=== PATIENT | female | born 1940 | race Caucasian/White ===

== ENCOUNTER 2018-07-23 04:13 | Emergency (ER) | payer MEDICARE, MEDICAID ==
[~2018-07-23] VITALS: Ht 162.6 cm; Wt 40.9 kg
[~2018-07-23 04:13] MED LIST: ALBU6.7H INH; FURO-149 PO; HYDR-569 PO
[2018-07-23] MEDS ORDERED: ketorolac trometh inj. 60 MG/2 ML VIAL IM ONE (04:55)
[2018-07-23] MEDS ORDERED: HYDROcodone/acetaminophen 5mg/325mg tablet PO ONE (05:05)
[2018-07-23] MEDS ORDERED: ondansetron 4mg rapidly disintigrating tab PO ONE (05:05)
[2018-07-23 05:10] VITALS: BP 141/81
== END 2018-07-23 07:36 | disposition home or self-care (01) ==
LOC: ER 04:13
DX: G89.29 Other chronic pain (principal); M79.604 Pain in right leg; M79.605 Pain in left leg; J44.9 Chronic obstructive pulmonary disease, unspecified; K21.9 Gastro-esophageal reflux disease without esophagitis; Z72.89 Other problems related to lifestyle; Z88.1 Allergy status to other antibiotic agents; Z88.8 Allergy status to other drugs, medicaments and biological substances; Z88.6 Allergy status to analgesic agent
CPT/HCPCS: 93005; 96372; 99283; J1885

== ENCOUNTER 2018-08-18 10:15 | Inpatient (IN) | payer MEDICARE, MEDICAID ==
[~2018-08-18] VITALS: Ht 160 cm; Wt 40.9 kg
[~2018-08-18 10:15] MED LIST changes: +HYDR-4383 PO; -HYDR-569 PO
[2018-08-18 11:50] LABS: CLARITY,URINE CLEAR (Clear); COLOR,URINE YELLOW (Yellow); GLUCOSE, URINE NEGATIVE (Neg); KETONES,URINE NEGATIVE (Neg); LEUKOCYTE ESTERASE ,URINE NEGATIVE (Neg); NITRITES, URINE NEGATIVE (Neg); OCCULT BLOOD,URINE NEGATIVE (Neg); PH,URINE 7.5 (4.8-8.0); PROTEIN,URINE NEGATIVE (Neg)
[2018-08-18 11:51] LABS: UA COLLECTION TYPE CLN CATCH MIDSTREAM
[2018-08-18] MEDS ORDERED: HYDROcodone/acetaminophen 10/325mg tab PO ONE (11:55)
[2018-08-18 12:00] LABS: PARTIAL THROMBOPLASTIN TIME 31 SECONDS (22-32)
[2018-08-18 12:01] LABS: BASOPHILS # (AUTO) 0.1 X10'3 (0-0.2); EOSINOPHILS # (AUTO) 0.1 X10'3 (0-0.9); EOSINOPHILS % (AUTO) 1.3 % (0-6); HEMOGLOBIN 13.4 g/dl (12.0-16.0); LYMPHOCYTES # (AUTO) 2.7 X10'3 (1.1-4.8); LYMPHOCYTES % (AUTO) 25.8 % (21-51); MEAN CORPUSCULAR HEMOGLOBIN 29.1 PG (27.0-31.0); MEAN CORPUSCULAR HGB CONC 32.7 % (33.0-36.5); MEAN CORPUSCULAR VOLUME 88.9 FL (78-98); MEAN PLATELET VOLUME 8.4 FL (7.4-10.4); MONOCYTES # (AUTO) 0.8 X10'3 (0-0.9); MONOCYTES % (AUTO) 7.6 % (2-12); NEUTROPHILS # (AUTO) 6.8 X10'3 (1.8-7.7); NEUTROPHILS % (AUTO) 64.3 % (42-75); PLATELET COUNT 410 X10'3 (140-440); RED BLOOD COUNT 4.61 X10'6 (4.20-5.60); RED CELL DISTRIBUTION WIDTH 14.9 % (11.5-14.5); WHITE BLOOD COUNT 10.6 X10'3 (4.5-11.0)
[2018-08-18 12:07] LABS: ALANINE AMINOTRANSFERASE 20 U/L (12-78); ALBUMIN 2.6 G/DL (3.4-5.0); ALBUMIN/GLOBULIN RATIO 0.6 (1.1-1.5); ALKALINE PHOSPHATASE 121 IU/L (46-116); ANION GAP 8 (8-16); ASPARTATE AMINO TRANSFERASE 25 U/L (10-37); BILIRUBIN,TOTAL 0.5 MG/DL (0.1-1.0); BLOOD UREA NITROGEN 13 MG/DL (7-18); BUN/CREATININE RATIO 21.3 (6.6-38.0); CALCIUM 8.7 MG/DL (8.5-10.1); CHLORIDE 103 MMOL/L (99-107); CREATININE 0.61 MG/DL (0.40-0.90); GLUCOSE 87 MG/DL (70-104); MAGNESIUM 2.1 MG/DL (1.5-2.4); POTASSIUM 3.9 MMOL/L (3.5-5.1); SODIUM 141 MMOL/L (135-145); TOTAL CARBON DIOXIDE 30.4 MMOL/L (24-32); TOTAL PROTEIN 6.7 G/DL (6.4-8.2); eGFR > 90 ML/MIN
[2018-08-18] MEDS ORDERED: magnesium Cl slow-release 64mg tablet PO PRN (14:10)
[2018-08-18] MEDS ORDERED: potassium Cl 20 mEq SR tablet PO PRN ×2 (14:10)
[2018-08-18] MEDS ORDERED: acetaminophen 325mg tablet PO PRN ×2 (14:10)
[2018-08-18] MEDS ORDERED: magnesium 4gm in 100ml NS 100 ML IV PRN (14:10)
[2018-08-18] MEDS ORDERED: magnesium 1gm/100ml D5W IVPB 100 ML IV PRN (14:10)
[2018-08-18] MEDS ORDERED: magnesium hydroxide 30ml (MOM) UD suspension PO PRN (14:10)
[2018-08-18] MEDS ORDERED: mag hydrox/Alum hydrox/simeth 30ml oral suspension PO PRN (14:10)
[2018-08-18] MEDS ORDERED: morphine 2 MG/ML inj. syringe IV PRN (14:10)
[2018-08-18] MEDS ORDERED: potassium Cl 40MEQ/NS 500ml 500 ML IV PRN ×2 (14:10)
[2018-08-18] MEDS ORDERED: HYDROcodone/acetaminophen 5mg/325mg tablet PO PRN (14:10)
[2018-08-18] MEDS ORDERED: iohexol 350MG/ML 100ml bottle IV ONE (14:27)
[2018-08-18] MEDS: normal saline 1000ml 1,000 ML IV SCH (15:34)
[2018-08-18] MEDS: morphine 2 MG/ML inj. syringe IV PRN ×2 (15:34→19:48)
[2018-08-18] MEDS: HYDROcodone/acetaminophen 10/325mg tab PO PRN (16:52)
[2018-08-18 19:00] VITALS: BP 132/50
[2018-08-18] MEDS: heparin, porcine 5000 units/ml vial SQ SCH (19:52)
[2018-08-19] MEDS: morphine 2 MG/ML inj. syringe IV PRN ×4 (00:03→19:44)
[2018-08-19 00:30] VITALS: BP 111/50
[2018-08-19 05:12] LABS: ALBUMIN 1.9 G/DL (3.4-5.0); ANION GAP 8 (8-16); BLOOD UREA NITROGEN 15 MG/DL (7-18); CALCIUM 7.8 MG/DL (8.5-10.1); CHLORIDE 105 MMOL/L (99-107); GLUCOSE 83 MG/DL (70-104); MAGNESIUM 1.9 MG/DL (1.5-2.4); POTASSIUM 3.7 MMOL/L (3.5-5.1); SODIUM 141 MMOL/L (135-145); TOTAL CARBON DIOXIDE 28.5 MMOL/L (24-32); eGFR > 90 ML/MIN
[2018-08-19 05:25] LABS: BASOPHILS % (AUTO) 0.5 % (0-1); EOSINOPHILS # (AUTO) 0.4 X10'3 (0-0.9); EOSINOPHILS % (AUTO) 3.4 % (0-6); HEMOGLOBIN 11.6 g/dl (12.0-16.0); LYMPHOCYTES # (AUTO) 4.1 X10'3 (1.1-4.8); LYMPHOCYTES % (AUTO) 39.4 % (21-51); MEAN CORPUSCULAR HEMOGLOBIN 29.1 PG (27.0-31.0); MEAN CORPUSCULAR HGB CONC 33.1 % (33.0-36.5); MEAN CORPUSCULAR VOLUME 87.9 FL (78-98); MEAN PLATELET VOLUME 7.9 FL (7.4-10.4); MONOCYTES # (AUTO) 0.9 X10'3 (0-0.9); MONOCYTES % (AUTO) 8.7 % (2-12); PLATELET COUNT 409 X10'3 (140-440); RED BLOOD COUNT 3.98 X10'6 (4.20-5.60); RED CELL DISTRIBUTION WIDTH 14.5 % (11.5-14.5); WHITE BLOOD COUNT 10.5 X10'3 (4.5-11.0)
[2018-08-19 07:00] VITALS: BP 119/50
[2018-08-19] MEDS: K and/or MAG REPLACEMENT MC SCH (08:00)
[2018-08-19] MEDS: heparin, porcine 5000 units/ml vial SQ SCH ×2 (08:59→19:44)
[2018-08-19] MEDS: pantoprazole 40mg Tablet.DR PO SCH (08:59)
[2018-08-19 11:00] VITALS: BP 111/49
[2018-08-19] MEDS: normal saline 1000ml 1,000 ML IV SCH (13:12)
[2018-08-19] MEDS: vancomycin/NS 1 GM ADD-VANTAGE 250 ML IV SCH (13:25)
[2018-08-19 19:00] VITALS: BP 116/53
[2018-08-19] MEDS: HYDROcodone/acetaminophen 10/325mg tab PO PRN (22:01)
[2018-08-20] VITALS: BP 116/50
[2018-08-20] MEDS: morphine 2 MG/ML inj. syringe IV PRN ×3 (03:57→22:58)
[2018-08-20 05:09] LABS: BASOPHILS % (AUTO) 0.5 % (0-1); EOSINOPHILS # (AUTO) 0.2 X10'3 (0-0.9); EOSINOPHILS % (AUTO) 2.4 % (0-6); HEMATOCRIT 32.7 % (35.0-45.0); HEMOGLOBIN 10.8 g/dl (12.0-16.0); LYMPHOCYTES # (AUTO) 3.3 X10'3 (1.1-4.8); LYMPHOCYTES % (AUTO) 33.2 % (21-51); MEAN CORPUSCULAR HEMOGLOBIN 29.2 PG (27.0-31.0); MEAN CORPUSCULAR HGB CONC 32.9 % (33.0-36.5); MEAN CORPUSCULAR VOLUME 88.8 FL (78-98); MEAN PLATELET VOLUME 8.4 FL (7.4-10.4); MONOCYTES # (AUTO) 0.9 X10'3 (0-0.9); MONOCYTES % (AUTO) 9.1 % (2-12); NEUTROPHILS # (AUTO) 5.5 X10'3 (1.8-7.7); NEUTROPHILS % (AUTO) 54.8 % (42-75); PLATELET COUNT 381 X10'3 (140-440); RED BLOOD COUNT 3.68 X10'6 (4.20-5.60); RED CELL DISTRIBUTION WIDTH 14.7 % (11.5-14.5)
[2018-08-20 05:34] LABS: ALBUMIN 1.6 G/DL (3.4-5.0); ANION GAP 9 (8-16); BLOOD UREA NITROGEN 14 MG/DL (7-18); CALCIUM 7.9 MG/DL (8.5-10.1); CHLORIDE 108 MMOL/L (99-107); CREATININE 0.56 MG/DL (0.40-0.90); GLUCOSE 83 MG/DL (70-104); MAGNESIUM 1.8 MG/DL (1.5-2.4); SODIUM 143 MMOL/L (135-145); TOTAL CARBON DIOXIDE 25.9 MMOL/L (24-32); eGFR > 90 ML/MIN
[2018-08-20 05:35] LABS: POTASSIUM 2.9 MMOL/L (3.5-5.1)
[2018-08-20] MEDS: normal saline 1000ml 1,000 ML IV SCH ×3 (06:09→22:58)
[2018-08-20 07:04] VITALS: BP 116/49
[2018-08-20] MEDS: K and/or MAG REPLACEMENT MC SCH (08:00)
[2018-08-20] MEDS: pantoprazole 40mg Tablet.DR PO SCH (08:29)
[2018-08-20] MEDS: heparin, porcine 5000 units/ml vial SQ SCH ×2 (08:29→19:14)
[2018-08-20] MEDS: HYDROcodone/acetaminophen 10/325mg tab PO PRN ×2 (08:30→19:14)
[2018-08-20 11:20] VITALS: BP 109/52
[2018-08-20] MEDS: vancomycin/NS 1 GM ADD-VANTAGE 250 ML IV SCH (12:30)
[2018-08-20] MEDS: ondansetron/PF 4mg/2ml inj IV PRN (14:41)
[2018-08-20] MEDS: CefTRIAXone/D5W-Rocephin 1gm 50 ML IV SCH (14:49)
[2018-08-20 18:00] VITALS: BP 109/53
[2018-08-20] MEDS: lactobacillus rhamnosus 10,000 MMU CELLS/CAPSULE PO SCH (19:14)
[2018-08-21 00:10] VITALS: BP 119/53
[2018-08-21 05:15] LABS: BASOPHILS # (AUTO) 0.1 X10'3 (0-0.2); BASOPHILS % (AUTO) 0.8 % (0-1); EOSINOPHILS # (AUTO) 0.3 X10'3 (0-0.9); HEMATOCRIT 31.9 % (35.0-45.0); HEMOGLOBIN 10.5 g/dl (12.0-16.0); LYMPHOCYTES % (AUTO) 34.2 % (21-51); MEAN CORPUSCULAR HEMOGLOBIN 28.8 PG (27.0-31.0); MEAN CORPUSCULAR HGB CONC 32.8 % (33.0-36.5); MEAN CORPUSCULAR VOLUME 87.9 FL (78-98); MEAN PLATELET VOLUME 8.2 FL (7.4-10.4); MONOCYTES # (AUTO) 0.7 X10'3 (0-0.9); MONOCYTES % (AUTO) 8.3 % (2-12); NEUTROPHILS # (AUTO) 4.7 X10'3 (1.8-7.7); NEUTROPHILS % (AUTO) 53.7 % (42-75); PLATELET COUNT 369 X10'3 (140-440); RED BLOOD COUNT 3.63 X10'6 (4.20-5.60); RED CELL DISTRIBUTION WIDTH 14.8 % (11.5-14.5); WHITE BLOOD COUNT 8.8 X10'3 (4.5-11.0)
[2018-08-21 05:24] LABS: ALBUMIN 1.5 G/DL (3.4-5.0); ANION GAP 9 (8-16); BLOOD UREA NITROGEN 12 MG/DL (7-18); BUN/CREATININE RATIO 24.5 (6.6-38.0); CALCIUM 7.7 MG/DL (8.5-10.1); CHLORIDE 108 MMOL/L (99-107); CREATININE 0.49 MG/DL (0.40-0.90); GLUCOSE 87 MG/DL (70-104); MAGNESIUM 1.9 MG/DL (1.5-2.4); POTASSIUM 3.4 MMOL/L (3.5-5.1); SODIUM 143 MMOL/L (135-145); TOTAL CARBON DIOXIDE 25.6 MMOL/L (24-32); eGFR > 90 ML/MIN
[2018-08-21] MEDS: morphine 2 MG/ML inj. syringe IV PRN ×3 (05:36→19:14)
[2018-08-21 07:06] VITALS: BP 118/55
[2018-08-21] MEDS: CefTRIAXone/D5W-Rocephin 1gm 50 ML IV SCH (07:25)
[2018-08-21] MEDS: pantoprazole 40mg Tablet.DR PO SCH (07:25)
[2018-08-21] MEDS: lactobacillus rhamnosus 10,000 MMU CELLS/CAPSULE PO SCH ×2 (07:26→19:13)
[2018-08-21] MEDS: heparin, porcine 5000 units/ml vial SQ SCH ×3 (07:28→19:13)
[2018-08-21] MEDS: K and/or MAG REPLACEMENT MC SCH (07:57)
[2018-08-21] MEDS ORDERED: LIDOcaine 1% 30ml vial 5 ML in potassium Cl 40MEQ/NS 500ml 500 ML IV ONE (08:05)
[2018-08-21] MEDS ORDERED: NO HOME MEDS (09:48)
[2018-08-21] MEDS: HYDROcodone/acetaminophen 10/325mg tab PO PRN ×3 (11:11→23:03)
[2018-08-21] MEDS: vancomycin/NS 1 GM ADD-VANTAGE 250 ML IV SCH (11:40)
[2018-08-21 11:58] VITALS: BP 112/57
[2018-08-21] MEDS: gentamicin 0.1% topical ointment 15gm TP SCH (17:00)
[2018-08-21 18:00] VITALS: BP 109/50
[2018-08-21] MEDS: temazepam 15mg capsule PO PRN (23:09)
[2018-08-22] VITALS: BP 135/69
[2018-08-22] MEDS: HYDROcodone/acetaminophen 10/325mg tab PO PRN ×4 (04:59→21:45)
[2018-08-22 05:04] LABS: ANION GAP 10 (8-16); BLOOD UREA NITROGEN 11 MG/DL (7-18); CHLORIDE 109 MMOL/L (99-107); CREATININE 0.55 MG/DL (0.40-0.90); GLUCOSE 85 MG/DL (70-104); POTASSIUM 3.5 MMOL/L (3.5-5.1); SODIUM 145 MMOL/L (135-145); TOTAL CARBON DIOXIDE 26.2 MMOL/L (24-32)
[2018-08-22 05:05] LABS: ALBUMIN 1.6 G/DL (3.4-5.0); CALCIUM 8.3 MG/DL (8.5-10.1); MAGNESIUM 1.8 MG/DL (1.5-2.4); eGFR > 90 ML/MIN
[2018-08-22 05:15] LABS: BASOPHILS # (AUTO) 0.1 X10'3 (0-0.2); BASOPHILS % (AUTO) 0.9 % (0-1); EOSINOPHILS # (AUTO) 0.4 X10'3 (0-0.9); EOSINOPHILS % (AUTO) 5.4 % (0-6); HEMATOCRIT 34.9 % (35.0-45.0); HEMOGLOBIN 11.3 g/dl (12.0-16.0); LYMPHOCYTES # (AUTO) 3.6 X10'3 (1.1-4.8); LYMPHOCYTES % (AUTO) 43.5 % (21-51); MEAN CORPUSCULAR HEMOGLOBIN 28.7 PG (27.0-31.0); MEAN CORPUSCULAR HGB CONC 32.4 % (33.0-36.5); MEAN CORPUSCULAR VOLUME 88.7 FL (78-98); MEAN PLATELET VOLUME 8.4 FL (7.4-10.4); MONOCYTES # (AUTO) 0.6 X10'3 (0-0.9); MONOCYTES % (AUTO) 7.8 % (2-12); NEUTROPHILS # (AUTO) 3.5 X10'3 (1.8-7.7); NEUTROPHILS % (AUTO) 42.4 % (42-75); PLATELET COUNT 387 X10'3 (140-440); RED BLOOD COUNT 3.94 X10'6 (4.20-5.60); RED CELL DISTRIBUTION WIDTH 14.6 % (11.5-14.5); WHITE BLOOD COUNT 8.2 X10'3 (4.5-11.0)
[2018-08-22 07:00] VITALS: BP 122/64
[2018-08-22] MEDS: K and/or MAG REPLACEMENT MC SCH (07:03)
[2018-08-22] MEDS: CefTRIAXone/D5W-Rocephin 1gm 50 ML IV SCH (07:03)
[2018-08-22] MEDS: heparin, porcine 5000 units/ml vial SQ SCH ×2 (07:03→19:59)
[2018-08-22] MEDS: lactobacillus rhamnosus 10,000 MMU CELLS/CAPSULE PO SCH ×2 (07:03→19:59)
[2018-08-22] MEDS: pantoprazole 40mg Tablet.DR PO SCH (07:03)
[2018-08-22] MEDS: morphine 2 MG/ML inj. syringe IV PRN ×4 (07:15→23:49)
[2018-08-22] MEDS: gentamicin 0.1% topical ointment 15gm TP SCH (08:00)
[2018-08-22 11:00] VITALS: BP 124/63
[2018-08-22] MEDS ORDERED: VANCOMYCIN LEVEL IV NR (11:30)
[2018-08-22] MEDS: vancomycin/NS 1 GM ADD-VANTAGE 250 ML IV SCH (12:49)
[2018-08-22] MEDS: Dakins solution (1/4 strength) 473ml solution TP SCH ×2 (17:11→20:00)
[2018-08-22 18:00] VITALS: BP 127/64
[2018-08-22] MEDS: lactose-reduced food (Ensure Enlive) - 237ml bottle PO SCH (18:00)
[2018-08-22] MEDS: normal saline 1000ml 1,000 ML IV SCH ×2 (18:09→21:46)
[2018-08-22] MEDS: temazepam 15mg capsule PO PRN (19:59)
[2018-08-23] VITALS: BP 127/57
[2018-08-23] MEDS: HYDROcodone/acetaminophen 10/325mg tab PO PRN ×4 (03:48→20:52)
[2018-08-23 04:41] LABS: BASOPHILS # (AUTO) 0.1 X10'3 (0-0.2); EOSINOPHILS # (AUTO) 0.5 X10'3 (0-0.9); EOSINOPHILS % (AUTO) 5.9 % (0-6); HEMATOCRIT 36.5 % (35.0-45.0); HEMOGLOBIN 11.8 g/dl (12.0-16.0); LYMPHOCYTES # (AUTO) 3.4 X10'3 (1.1-4.8); LYMPHOCYTES % (AUTO) 38.3 % (21-51); MEAN CORPUSCULAR HEMOGLOBIN 28.9 PG (27.0-31.0); MEAN CORPUSCULAR HGB CONC 32.4 % (33.0-36.5); MONOCYTES # (AUTO) 0.7 X10'3 (0-0.9); MONOCYTES % (AUTO) 7.9 % (2-12); NEUTROPHILS # (AUTO) 4.2 X10'3 (1.8-7.7); NEUTROPHILS % (AUTO) 46.9 % (42-75); PLATELET COUNT 424 X10'3 (140-440); WHITE BLOOD COUNT 8.9 X10'3 (4.5-11.0)
[2018-08-23 05:00] LABS: ALBUMIN 1.7 G/DL (3.4-5.0); ANION GAP 9 (8-16); BLOOD UREA NITROGEN 10 MG/DL (7-18); BUN/CREATININE RATIO 18.5 (6.6-38.0); CHLORIDE 107 MMOL/L (99-107); CREATININE 0.54 MG/DL (0.40-0.90); GLUCOSE 91 MG/DL (70-104); MAGNESIUM 1.6 MG/DL (1.5-2.4); SODIUM 144 MMOL/L (135-145); eGFR > 90 ML/MIN
[2018-08-23] MEDS ORDERED: magnesium 4gm in 100ml NS 100 ML IV PRN (05:30)
[2018-08-23] MEDS ORDERED: potassium Cl 20 mEq SR tablet PO PRN ×2 (05:30)
[2018-08-23] MEDS ORDERED: magnesium Cl slow-release 64mg tablet PO PRN (05:30)
[2018-08-23] MEDS ORDERED: potassium Cl 40MEQ/NS 500ml 500 ML IV PRN (05:30)
[2018-08-23 07:10] VITALS: BP_SYST 59
[2018-08-23] MEDS: lactose-reduced food (Ensure Enlive) - 237ml bottle PO SCH ×3 (08:00→17:34)
[2018-08-23] MEDS: K and/or MAG REPLACEMENT MC SCH (08:00)
[2018-08-23] MEDS: Dakins solution (1/4 strength) 473ml solution TP SCH ×2 (08:00→19:53)
[2018-08-23] MEDS: heparin, porcine 5000 units/ml vial SQ SCH ×2 (08:41→19:24)
[2018-08-23] MEDS: lactobacillus rhamnosus 10,000 MMU CELLS/CAPSULE PO SCH ×2 (08:41→19:27)
[2018-08-23] MEDS: pantoprazole 40mg Tablet.DR PO SCH (08:42)
[2018-08-23] MEDS: morphine 2 MG/ML inj. syringe IV PRN ×3 (08:42→18:52)
[2018-08-23] MEDS: potassium Cl 40MEQ/NS 500ml 500 ML IV PRN ×2 (08:43→15:04)
[2018-08-23 12:37] VITALS: BP 132/62
[2018-08-23] MEDS: CefTRIAXone/D5W-Rocephin 1gm 50 ML IV SCH (12:48)
[2018-08-23] MEDS: vancomycin/NS 1 GM ADD-VANTAGE 250 ML IV SCH (13:31)
[2018-08-23] MEDS ORDERED: oxyCODONE IR 5mg (immed. release) tablet PO ONE (15:00)
[2018-08-23 18:00] VITALS: BP 123/53
[2018-08-23] MEDS: docusate sod 100mg capsule PO SCH (19:28)
[2018-08-24] VITALS (19 sets, daily range): BP systolic 104–166; BP diastolic 48–73
[2018-08-24] MEDS: normal saline 1000ml 1,000 ML IV SCH (01:00)
[2018-08-24] MEDS: HYDROcodone/acetaminophen 10/325mg tab PO PRN ×2 (01:00→17:31)
[2018-08-24] MEDS: heparin, porcine 5000 units/ml vial SQ SCH ×2 (04:00→19:40)
[2018-08-24] MEDS: morphine 2 MG/ML inj. syringe IV PRN ×2 (04:05→14:06)
[2018-08-24 05:47] LABS: PARTIAL THROMBOPLASTIN TIME 31 SECONDS (22-32); PROTHROMBIN TIME 10.6 SECONDS (9.0-12.0)
[2018-08-24 06:06] LABS: BASOPHILS # (AUTO) 0.1 X10'3 (0-0.2); EOSINOPHILS # (AUTO) 0.5 X10'3 (0-0.9)
[2018-08-24 06:07] LABS: BASOPHILS % (AUTO) 1.3 % (0-1); EOSINOPHILS % (AUTO) 5.7 % (0-6); LYMPHOCYTES # (AUTO) 3.3 X10'3 (1.1-4.8); LYMPHOCYTES % (AUTO) 41.5 % (21-51); MEAN CORPUSCULAR HGB CONC 33.9 % (33.0-36.5); MEAN CORPUSCULAR VOLUME 88.3 FL (78-98); MEAN PLATELET VOLUME 8.5 FL (7.4-10.4); MONOCYTES # (AUTO) 0.7 X10'3 (0-0.9); MONOCYTES % (AUTO) 8.6 % (2-12); NEUTROPHILS # (AUTO) 3.4 X10'3 (1.8-7.7); NEUTROPHILS % (AUTO) 42.9 % (42-75); PLATELET COUNT 409 X10'3 (140-440); RED CELL DISTRIBUTION WIDTH 14.2 % (11.5-14.5)
[2018-08-24 06:08] LABS: ALANINE AMINOTRANSFERASE 21 U/L (12-78); ALBUMIN 1.6 G/DL (3.4-5.0); ALBUMIN/GLOBULIN RATIO 0.5 (1.1-1.5); ALKALINE PHOSPHATASE 89 IU/L (46-116); ANION GAP 9 (8-16); ASPARTATE AMINO TRANSFERASE 26 U/L (10-37); BILIRUBIN,TOTAL 0.2 MG/DL (0.1-1.0); BLOOD UREA NITROGEN 10 MG/DL (7-18); BUN/CREATININE RATIO 21.3 (6.6-38.0); CHLORIDE 108 MMOL/L (99-107); CREATININE 0.47 MG/DL (0.40-0.90); GLUCOSE 90 MG/DL (70-104); HEMOGLOBIN 11.2 g/dl (12.0-16.0); MAGNESIUM 1.6 MG/DL (1.5-2.4); POTASSIUM 3.7 MMOL/L (3.5-5.1); RED BLOOD COUNT 3.74 X10'6 (4.20-5.60); SODIUM 143 MMOL/L (135-145); TOTAL PROTEIN 4.7 G/DL (6.4-8.2); eGFR > 90 ML/MIN
[2018-08-24 06:12] LABS: CALCIUM 7.6 MG/DL (8.5-10.1)
[2018-08-24] MEDS: K and/or MAG REPLACEMENT MC SCH (07:43)
[2018-08-24] MEDS: lactobacillus rhamnosus 10,000 MMU CELLS/CAPSULE PO SCH ×2 (07:44→19:39)
[2018-08-24] MEDS: lactose-reduced food (Ensure Enlive) - 237ml bottle PO SCH ×3 (07:44→18:19)
[2018-08-24] MEDS: docusate sod 100mg capsule PO SCH ×2 (07:44→19:39)
[2018-08-24] MEDS: Dakins solution (1/4 strength) 473ml solution TP SCH ×2 (07:44→19:42)
[2018-08-24] MEDS: pantoprazole 40mg Tablet.DR PO SCH (07:49)
[2018-08-24] MEDS: CefTRIAXone/D5W-Rocephin 1gm 50 ML IV SCH (07:49)
[2018-08-24] MEDS ORDERED: ringers solution, lacted 1,000 ML IV SCH (09:44)
[2018-08-24] MEDS ORDERED: ondansetron/PF 4mg/2ml inj IV PRN (09:45)
[2018-08-24] MEDS ORDERED: morphine 4 MG/ML inj SYRINge IV PRN ×2 (09:45)
[2018-08-24] MEDS ORDERED: labetalol 20mg/4ml (5mg/ml) syringe IV PRN (09:45)
[2018-08-24] MEDS ORDERED: fentaNYL/PF 50MCG/1 ML 2ML syringe IV PRN (09:45)
[2018-08-24] MEDS ORDERED: hydrALAZINE 20mg/ml inj. IV PRN (09:45)
[2018-08-24] MEDS ORDERED: morphine 10mg/ml inj. ONE ×2 (09:54→10:24)
[2018-08-24] MEDS ORDERED: propofol 10mg/ml 20ml vial IV ONE (10:00)
[2018-08-24] MEDS ORDERED: sevoflurane 250ml liquid IH ONE (10:00)
[2018-08-24] MEDS ORDERED: LIDOcaine 1%/PF 5ML 10 MG/ML VIAL ONE (10:00)
[2018-08-24] MEDS: fentaNYL/PF 50MCG/1 ML 2ML syringe IV PRN ×2 (11:15→11:32)
[2018-08-24] MEDS: vancomycin/NS 1 GM ADD-VANTAGE 250 ML IV SCH (13:58)
[2018-08-25] VITALS: BP 110/55
[2018-08-25] MEDS: normal saline 1000ml 1,000 ML IV SCH ×2 (00:58→17:10)
[2018-08-25] MEDS: HYDROcodone/acetaminophen 10/325mg tab PO PRN ×3 (00:59→17:10)
[2018-08-25 08:00] VITALS: BP 126/59
[2018-08-25] MEDS: pantoprazole 40mg Tablet.DR PO SCH (08:00)
[2018-08-25] MEDS: Dakins solution (1/4 strength) 473ml solution TP SCH ×2 (08:00→19:21)
[2018-08-25] MEDS: lactose-reduced food (Ensure Enlive) - 237ml bottle PO SCH ×3 (08:00→18:00)
[2018-08-25] MEDS: K and/or MAG REPLACEMENT MC SCH (08:00)
[2018-08-25] MEDS: docusate sod 100mg capsule PO SCH ×2 (08:51→19:04)
[2018-08-25] MEDS: lactobacillus rhamnosus 10,000 MMU CELLS/CAPSULE PO SCH ×2 (08:51→19:04)
[2018-08-25] MEDS: CefTRIAXone/D5W-Rocephin 1gm 50 ML IV SCH (08:55)
[2018-08-25] MEDS: heparin, porcine 5000 units/ml vial SQ SCH ×2 (08:57→19:05)
[2018-08-25] MEDS: morphine 2 MG/ML inj. syringe IV PRN (12:34)
[2018-08-25] MEDS: vancomycin/NS 1 GM ADD-VANTAGE 250 ML IV SCH (12:37)
[2018-08-25] MEDS ORDERED: bisacodyl 10mg suppository rectal RC PRN (14:30)
[2018-08-25] MEDS ORDERED: lactulose 20gm/30ml cup PO ONE (18:15)
[2018-08-25] MEDS ORDERED: metoclopramide 5 mg/ml inj IV ONE (18:15)
[2018-08-25 20:00] VITALS: BP 116/58
[2018-08-26] VITALS: BP 113/77
[2018-08-26] MEDS: oxyCODONE/APAP 10/325mg tablet PO PRN ×3 (00:49→17:57)
[2018-08-26] MEDS: CefTRIAXone/D5W-Rocephin 1gm 50 ML IV SCH (07:17)
[2018-08-26] MEDS: heparin, porcine 5000 units/ml vial SQ SCH ×2 (07:18→19:52)
[2018-08-26] MEDS: lactobacillus rhamnosus 10,000 MMU CELLS/CAPSULE PO SCH ×2 (07:18→19:54)
[2018-08-26] MEDS: pantoprazole 40mg Tablet.DR PO SCH (07:20)
[2018-08-26] MEDS: docusate sod 100mg capsule PO SCH ×2 (07:21→19:54)
[2018-08-26] MEDS: K and/or MAG REPLACEMENT MC SCH (07:36)
[2018-08-26] MEDS: lactose-reduced food (Ensure Enlive) - 237ml bottle PO SCH ×3 (07:37→18:03)
[2018-08-26] MEDS: Dakins solution (1/4 strength) 473ml solution TP SCH ×2 (07:38→19:54)
[2018-08-26 08:00] VITALS: BP 136/69
[2018-08-26 11:00] VITALS: BP 135/67
[2018-08-26] MEDS ORDERED: VANCOMYCIN LEVEL IV ONE ×2 (11:30→12:30)
[2018-08-26] MEDS: normal saline 1000ml 1,000 ML IV SCH (12:03)
[2018-08-26] MEDS: vancomycin/NS 1 GM ADD-VANTAGE 250 ML IV SCH (12:50)
[2018-08-26] MEDS: morphine 2 MG/ML inj. syringe IV PRN ×2 (12:51→21:30)
[2018-08-26 19:00] VITALS: BP 137/66
[2018-08-26] MEDS: temazepam 15mg capsule PO PRN (21:25)
[2018-08-27] VITALS: BP 124/54
[2018-08-27] MEDS: oxyCODONE/APAP 10/325mg tablet PO PRN ×4 (01:34→21:18)
[2018-08-27] MEDS: normal saline 1000ml 1,000 ML IV SCH (04:53)
[2018-08-27 05:23] LABS: ALANINE AMINOTRANSFERASE 24 U/L (12-78); ALBUMIN 1.5 G/DL (3.4-5.0); ALBUMIN/GLOBULIN RATIO 0.5 (1.1-1.5); ALKALINE PHOSPHATASE 93 IU/L (46-116); ANION GAP 6 (8-16); ASPARTATE AMINO TRANSFERASE 22 U/L (10-37); BILIRUBIN,TOTAL 0.2 MG/DL (0.1-1.0); BLOOD UREA NITROGEN 13 MG/DL (7-18); BUN/CREATININE RATIO 28.9 (6.6-38.0); CALCIUM 7.4 MG/DL (8.5-10.1); CHLORIDE 108 MMOL/L (99-107); CREATININE 0.45 MG/DL (0.40-0.90); GLUCOSE 91 MG/DL (70-104); SODIUM 143 MMOL/L (135-145); TOTAL CARBON DIOXIDE 28.8 MMOL/L (24-32); TOTAL PROTEIN 4.4 G/DL (6.4-8.2); eGFR > 90 ML/MIN
[2018-08-27 05:33] LABS: POTASSIUM 2.6 MMOL/L (3.5-5.1)
[2018-08-27] MEDS ORDERED: potassium Cl 40MEQ/NS 500ml 500 ML IV PRN ×2 (05:50)
[2018-08-27] MEDS ORDERED: magnesium Cl slow-release 64mg tablet PO PRN (05:50)
[2018-08-27] MEDS ORDERED: potassium Cl 20 mEq SR tablet PO PRN ×2 (05:50)
[2018-08-27] MEDS ORDERED: magnesium 4gm in 100ml NS 100 ML IV PRN (05:50)
[2018-08-27] MEDS ORDERED: magnesium 1gm/100ml D5W IVPB 100 ML IV PRN (05:50)
[2018-08-27] MEDS ORDERED: magnesium 1gm/100ml D5W IVPB 100 ML IV ONE (05:55)
[2018-08-27] MEDS ORDERED: Potassium Cl inj 40 MEQ in normal saline 500ml IV soln 480 ML IV ONE (05:55)
[2018-08-27 06:12] LABS: MAGNESIUM 1.5 MG/DL (1.5-2.4)
[2018-08-27 06:19] LABS: BASOPHILS # (AUTO) 0.3 X10'3 (0-0.2); BASOPHILS % (AUTO) 2.7 % (0-1); EOSINOPHILS # (AUTO) 0.4 X10'3 (0-0.9); HEMATOCRIT 30.9 % (35.0-45.0); HEMOGLOBIN 10.2 g/dl (12.0-16.0); LYMPHOCYTES # (AUTO) 3.8 X10'3 (1.1-4.8); LYMPHOCYTES % (AUTO) 39.5 % (21-51); MEAN CORPUSCULAR HEMOGLOBIN 29.2 PG (27.0-31.0); MEAN CORPUSCULAR HGB CONC 33.1 % (33.0-36.5); MEAN CORPUSCULAR VOLUME 88.2 FL (78-98); MEAN PLATELET VOLUME 8.6 FL (7.4-10.4); MONOCYTES # (AUTO) 0.8 X10'3 (0-0.9); MONOCYTES % (AUTO) 8.7 % (2-12); NEUTROPHILS # (AUTO) 4.2 X10'3 (1.8-7.7); NEUTROPHILS % (AUTO) 45.1 % (42-75); PLATELET COUNT 344 X10'3 (140-440); RED CELL DISTRIBUTION WIDTH 14.5 % (11.5-14.5); WHITE BLOOD COUNT 9.6 X10'3 (4.5-11.0)
[2018-08-27 07:12] VITALS: BP 133/68
[2018-08-27] MEDS: lactobacillus rhamnosus 10,000 MMU CELLS/CAPSULE PO SCH ×2 (07:59→19:59)
[2018-08-27] MEDS: docusate sod 100mg capsule PO SCH ×2 (08:00→19:59)
[2018-08-27] MEDS: pantoprazole 40mg Tablet.DR PO SCH (08:00)
[2018-08-27] MEDS: lactose-reduced food (Ensure Enlive) - 237ml bottle PO SCH ×3 (08:01→17:55)
[2018-08-27] MEDS: Dakins solution (1/4 strength) 473ml solution TP SCH ×2 (08:02→20:00)
[2018-08-27] MEDS: K and/or MAG REPLACEMENT MC SCH (08:02)
[2018-08-27] MEDS: heparin, porcine 5000 units/ml vial SQ SCH ×2 (08:06→20:00)
[2018-08-27] MEDS: CefTRIAXone/D5W-Rocephin 1gm 50 ML IV SCH (08:57)
[2018-08-27 11:00] VITALS: BP 124/62
[2018-08-27] MEDS: levoFLOXACIN 500mg tablet PO SCH (15:42)
[2018-08-27] MEDS: DOXYCYCLINE 100MG CAPSULE PO SCH ×2 (17:36→17:52)
[2018-08-27] MEDS: morphine 2 MG/ML inj. syringe IV PRN (18:27)
[2018-08-27 19:00] VITALS: BP 130/71
[2018-08-27] MEDS: potassium Cl 20mEq in NS 1,000 ML IV SCH (19:59)
[2018-08-27] MEDS: multivitamins, therapeutics tablet PO SCH (19:59)
[2018-08-27] MEDS: temazepam 15mg capsule PO PRN (23:00)
[2018-08-28] VITALS: BP 132/64
[2018-08-28] MEDS: morphine 2 MG/ML inj. syringe IV PRN (00:23)
[2018-08-28] MEDS: temazepam 15mg capsule PO PRN (00:23)
[2018-08-28] MEDS: oxyCODONE/APAP 10/325mg tablet PO PRN ×3 (04:50→19:08)
[2018-08-28 05:34] LABS: ALANINE AMINOTRANSFERASE 20 U/L (12-78); ALBUMIN 1.5 G/DL (3.4-5.0); ALBUMIN/GLOBULIN RATIO 0.5 (1.1-1.5); ALKALINE PHOSPHATASE 102 IU/L (46-116); ANION GAP 7 (8-16); ASPARTATE AMINO TRANSFERASE 18 U/L (10-37); BILIRUBIN,TOTAL 0.2 MG/DL (0.1-1.0); BLOOD UREA NITROGEN 11 MG/DL (7-18); BUN/CREATININE RATIO 25.6 (6.6-38.0); CALCIUM 7.4 MG/DL (8.5-10.1); CHLORIDE 110 MMOL/L (99-107); CREATININE 0.43 MG/DL (0.40-0.90); GLUCOSE 86 MG/DL (70-104); MAGNESIUM 1.7 MG/DL (1.5-2.4); POTASSIUM 3.5 MMOL/L (3.5-5.1); SODIUM 143 MMOL/L (135-145); TOTAL CARBON DIOXIDE 26.4 MMOL/L (24-32); TOTAL PROTEIN 4.6 G/DL (6.4-8.2); eGFR > 90 ML/MIN
[2018-08-28 07:00] VITALS: BP 131/67
[2018-08-28] MEDS: pantoprazole 40mg Tablet.DR PO SCH (07:37)
[2018-08-28] MEDS: lactobacillus rhamnosus 10,000 MMU CELLS/CAPSULE PO SCH ×2 (07:37→19:08)
[2018-08-28] MEDS: multivitamins, therapeutics tablet PO SCH (07:37)
[2018-08-28] MEDS: docusate sod 100mg capsule PO SCH ×2 (07:38→19:08)
[2018-08-28] MEDS: heparin, porcine 5000 units/ml vial SQ SCH ×3 (07:38→19:22)
[2018-08-28] MEDS: Dakins solution (1/4 strength) 473ml solution TP SCH ×2 (07:47→20:00)
[2018-08-28] MEDS: K and/or MAG REPLACEMENT MC SCH (07:47)
[2018-08-28] MEDS: lactose-reduced food (Ensure Enlive) - 237ml bottle PO SCH ×3 (08:00→17:41)
[2018-08-28] MEDS: levoFLOXACIN 500mg tablet PO SCH (10:49)
[2018-08-28] MEDS: potassium Cl 20mEq in NS 1,000 ML IV SCH ×2 (10:50→22:46)
[2018-08-28 11:00] VITALS: BP 123/63
[2018-08-28] MEDS ORDERED: potassium Cl 20mEq in NS 1,000 ML IV SCH (14:09)
[2018-08-28] MEDS: ondansetron/PF 4mg/2ml inj IV PRN (19:07)
[2018-08-28 20:00] VITALS: BP 132/66
[2018-08-29] MEDS: oxyCODONE/APAP 10/325mg tablet PO PRN ×3 (01:00→16:27)
[2018-08-29] MEDS: temazepam 15mg capsule PO PRN (01:00)
[2018-08-29 01:01] VITALS: BP 133/68
[2018-08-29 06:02] LABS: ALANINE AMINOTRANSFERASE 18 U/L (12-78); ALBUMIN 1.6 G/DL (3.4-5.0); ALBUMIN/GLOBULIN RATIO 0.5 (1.1-1.5); ALKALINE PHOSPHATASE 101 IU/L (46-116); ANION GAP 8 (8-16); ASPARTATE AMINO TRANSFERASE 16 U/L (10-37); BILIRUBIN,TOTAL 0.2 MG/DL (0.1-1.0); BLOOD UREA NITROGEN 8 MG/DL (7-18); BUN/CREATININE RATIO 16.7 (6.6-38.0); CALCIUM 7.5 MG/DL (8.5-10.1); CHLORIDE 108 MMOL/L (99-107); CREATININE 0.48 MG/DL (0.40-0.90); GLUCOSE 93 MG/DL (70-104); MAGNESIUM 1.6 MG/DL (1.5-2.4); POTASSIUM 3.6 MMOL/L (3.5-5.1); SODIUM 143 MMOL/L (135-145); TOTAL PROTEIN 4.6 G/DL (6.4-8.2); eGFR > 90 ML/MIN
[2018-08-29 08:00] VITALS: BP 127/58
[2018-08-29] MEDS: K and/or MAG REPLACEMENT MC SCH (08:00)
[2018-08-29] MEDS: heparin, porcine 5000 units/ml vial SQ SCH (08:00)
[2018-08-29] MEDS: lactobacillus rhamnosus 10,000 MMU CELLS/CAPSULE PO SCH (08:41)
[2018-08-29] MEDS: docusate sod 100mg capsule PO SCH (08:42)
[2018-08-29] MEDS: pantoprazole 40mg Tablet.DR PO SCH (08:42)
[2018-08-29] MEDS: multivitamins, therapeutics tablet PO SCH (08:42)
[2018-08-29] MEDS: Dakins solution (1/4 strength) 473ml solution TP SCH (08:44)
[2018-08-29] MEDS: lactose-reduced food (Ensure Enlive) - 237ml bottle PO SCH ×2 (08:45→13:00)
[2018-08-29 11:00] VITALS: BP 119/60
[2018-08-29] MEDS: potassium Cl 20mEq in NS 1,000 ML IV SCH (13:28)
[2018-08-30] MEDS ORDERED: VANCOMYCIN LEVEL IV NR (12:30)
== END 2018-08-29 16:35 | DRG 570 ==
LOC: ER 10:15 → ED HOLD 14:09 → EDBEDREQ 14:52 → SUR 3N 15:18
PROVIDERS: ADMIT Internal Medicine; ATTEND Internal Medicine
PROC: B4201ZZ Computerized Tomography (CT Scan) of Abdominal Aorta using Low Osmolar Contrast (ICD-10-PCS; 2018-08-18)
PROC: B4241ZZ Computerized Tomography (CT Scan) of Superior Mesenteric Artery using Low Osmolar Contrast (ICD-10-PCS; 2018-08-18)
PROC: B4281ZZ Computerized Tomography (CT Scan) of Bilateral Renal Arteries using Low Osmolar Contrast (ICD-10-PCS; 2018-08-18)
PROC: B42C1ZZ Computerized Tomography (CT Scan) of Pelvic Arteries using Low Osmolar Contrast (ICD-10-PCS; 2018-08-18)
PROC: B42H1ZZ Computerized Tomography (CT Scan) of Bilateral Lower Extremity Arteries using Low Osmolar Contrast (ICD-10-PCS; 2018-08-18)
PROC: B4211ZZ Computerized Tomography (CT Scan) of Celiac Artery using Low Osmolar Contrast (ICD-10-PCS; 2018-08-18)
PROC: B42H1ZZ Computerized Tomography (CT Scan) of Bilateral Lower Extremity Arteries using Low Osmolar Contrast (ICD-10-PCS; 2018-08-18)
PROC: 0JBN0ZZ Excision of Right Lower Leg Subcutaneous Tissue and Fascia, Open Approach (ICD-10-PCS; 2018-08-24)
PROC: 0JBP0ZZ Excision of Left Lower Leg Subcutaneous Tissue and Fascia, Open Approach (ICD-10-PCS; principal; 2018-08-24 10:00)
DX: L97.928 Non-pressure chronic ulcer of unspecified part of left lower leg with other specified severity (principal); E43 Unspecified severe protein-calorie malnutrition; Z68.1 Body mass index [BMI] 19.9 or less, adult; L97.918 Non-pressure chronic ulcer of unspecified part of right lower leg with other specified severity; E87.6 Hypokalemia; F17.200 Nicotine dependence, unspecified, uncomplicated; G43.909 Migraine, unspecified, not intractable, without status migrainosus; G89.4 Chronic pain syndrome; J44.9 Chronic obstructive pulmonary disease, unspecified; L08.9 Local infection of the skin and subcutaneous tissue, unspecified; B95.61 Methicillin susceptible Staphylococcus aureus infection as the cause of diseases classified elsewhere; K21.9 Gastro-esophageal reflux disease without esophagitis; K59.00 Constipation, unspecified; B96.4 Proteus (mirabilis) (morganii) as the cause of diseases classified elsewhere; Z88.2 Allergy status to sulfonamides; Z88.1 Allergy status to other antibiotic agents; Z88.8 Allergy status to other drugs, medicaments and biological substances; Z88.6 Allergy status to analgesic agent; Z71.6 Tobacco abuse counseling
CPT/HCPCS: 36415; 71045; 73706; 80048; 80053; 80202; 81003; 83605; 83735; 84132; 84145; 85025; 85610; 85730; 87040; 87070; 87075; 87077; 87102; 87176; 87186; 88305; 88312; 93005; 93925; 93970; 97110; 97162; 97164; 97530; 99285; A6222; A6223; A6253; A6258; A6446; A6449; A7000; J0696; J1644; J2001; J2270; J2405; J2704; J2765; J3010; J3370; J3480; J3490; J7030; J7120; Q9967

== ENCOUNTER 2018-09-28 10:52 | Day surgery (SDC) | payer MEDICARE, MEDICAID ==
[~2018-09-28 10:52] MED LIST changes: -ALBU6.7H INH; -FURO-149 PO; -HYDR-4383 PO; +NO HOME MEDS
[2018-09-28] MEDS ORDERED: LIDOcaine/PRILOcaine 5gm cream TP ONE (11:41)
[2018-09-28] MEDS ORDERED: PANT40TA4 PO (11:59)
[2018-09-28] MEDS ORDERED: PER10325T PO (12:00)
[2018-09-28] MEDS ORDERED: PENT400T12 PO (12:00)
== END 2018-09-28 13:10 | disposition home or self-care (01) ==
LOC: WOUND CARE 10:52
PROVIDERS: ATTEND Surgery
DX: I70.232 Atherosclerosis of native arteries of right leg with ulceration of calf (principal); L97.211 Non-pressure chronic ulcer of right calf limited to breakdown of skin; I70.234 Atherosclerosis of native arteries of right leg with ulceration of heel and midfoot; L97.411 Non-pressure chronic ulcer of right heel and midfoot limited to breakdown of skin; L97.812 Non-pressure chronic ulcer of other part of right lower leg with fat layer exposed; L97.821 Non-pressure chronic ulcer of other part of left lower leg limited to breakdown of skin; J44.9 Chronic obstructive pulmonary disease, unspecified; G89.29 Other chronic pain; K21.9 Gastro-esophageal reflux disease without esophagitis; G43.909 Migraine, unspecified, not intractable, without status migrainosus; F17.200 Nicotine dependence, unspecified, uncomplicated; E46 Unspecified protein-calorie malnutrition; Z68.1 Body mass index [BMI] 19.9 or less, adult; Z71.6 Tobacco abuse counseling
CPT/HCPCS: 97597; 97598; A6021; A6196; A6446

== ENCOUNTER 2018-10-19 10:25 | Day surgery (SDC) | payer MEDICARE, MEDICAID ==
[~2018-10-19 10:25] MED LIST changes: +PANT40TA4 PO; +PENT400T12 PO; +PER10325T PO
[2018-10-19] MEDS ORDERED: HYDR-4383 PO (14:54)
== END 2018-10-19 13:18 | disposition home or self-care (01) ==
LOC: WOUND CARE 10:25
PROVIDERS: ATTEND Surgery
DX: I70.232 Atherosclerosis of native arteries of right leg with ulceration of calf (principal); L97.211 Non-pressure chronic ulcer of right calf limited to breakdown of skin; I70.234 Atherosclerosis of native arteries of right leg with ulceration of heel and midfoot; L89.610 Pressure ulcer of right heel, unstageable; L97.411 Non-pressure chronic ulcer of right heel and midfoot limited to breakdown of skin; L97.812 Non-pressure chronic ulcer of other part of right lower leg with fat layer exposed; L97.821 Non-pressure chronic ulcer of other part of left lower leg limited to breakdown of skin; J44.9 Chronic obstructive pulmonary disease, unspecified; L89.153 Pressure ulcer of sacral region, stage 3; G89.29 Other chronic pain; K21.9 Gastro-esophageal reflux disease without esophagitis; G43.909 Migraine, unspecified, not intractable, without status migrainosus; F17.200 Nicotine dependence, unspecified, uncomplicated; E46 Unspecified protein-calorie malnutrition; Z68.1 Body mass index [BMI] 19.9 or less, adult; Z71.6 Tobacco abuse counseling
CPT/HCPCS: 97597; 97598; A6223; A6021; A6206; A6213; A6446

== ENCOUNTER 2018-10-24 09:54 | Day surgery (SDC) | payer MEDICARE, MEDICAID ==
[~2018-10-24 09:54] MED LIST changes: +HYDR-4383 PO
== END 2018-10-24 12:48 | disposition home or self-care (01) ==
LOC: WOUND CARE 09:54
PROVIDERS: ATTEND Surgery
DX: I70.232 Atherosclerosis of native arteries of right leg with ulceration of calf (principal); L97.211 Non-pressure chronic ulcer of right calf limited to breakdown of skin; I70.234 Atherosclerosis of native arteries of right leg with ulceration of heel and midfoot; L89.610 Pressure ulcer of right heel, unstageable; L97.411 Non-pressure chronic ulcer of right heel and midfoot limited to breakdown of skin; L97.812 Non-pressure chronic ulcer of other part of right lower leg with fat layer exposed; J44.9 Chronic obstructive pulmonary disease, unspecified; L89.153 Pressure ulcer of sacral region, stage 3; G89.29 Other chronic pain; K21.9 Gastro-esophageal reflux disease without esophagitis; G43.909 Migraine, unspecified, not intractable, without status migrainosus; E46 Unspecified protein-calorie malnutrition; F17.200 Nicotine dependence, unspecified, uncomplicated; Z68.1 Body mass index [BMI] 19.9 or less, adult; Z71.6 Tobacco abuse counseling
CPT/HCPCS: 97597; 97598; A6223; 99215; A6021; A6196; A6212

== ENCOUNTER 2018-11-06 10:09 | Day surgery (SDC) | payer MEDICARE, MEDICAID | END 2018-11-06 13:56 | disposition home or self-care (01) | LOC: WOUND CARE 10:09 | PROVIDERS: ATTEND Surgery | DX: I70.232 Atherosclerosis of native arteries of right leg with ulceration of calf (principal); L97.211 Non-pressure chronic ulcer of right calf limited to breakdown of skin; I70.234 Atherosclerosis of native arteries of right leg with ulceration of heel and midfoot; L89.610 Pressure ulcer of right heel, unstageable; L97.411 Non-pressure chronic ulcer of right heel and midfoot limited to breakdown of skin; L97.821 Non-pressure chronic ulcer of other part of left lower leg limited to breakdown of skin; L97.812 Non-pressure chronic ulcer of other part of right lower leg with fat layer exposed; J44.9 Chronic obstructive pulmonary disease, unspecified; L89.153 Pressure ulcer of sacral region, stage 3; G89.29 Other chronic pain; K21.9 Gastro-esophageal reflux disease without esophagitis; G43.909 Migraine, unspecified, not intractable, without status migrainosus; E46 Unspecified protein-calorie malnutrition; F17.200 Nicotine dependence, unspecified, uncomplicated; Z68.1 Body mass index [BMI] 19.9 or less, adult; Z71.6 Tobacco abuse counseling | CPT/HCPCS: 97597; 97598; A6223; 17250; A4414; A6021; A6446 ==

== ENCOUNTER 2018-12-13 10:10 | Day surgery (SDC) | payer MEDICARE, MEDICAID ==
[~2018-12-13 10:10] MED LIST changes: -NO HOME MEDS; -PER10325T PO
[2018-12-13] MEDS ORDERED: LIDOcaine 2% 5ml jelly ONE ×2 (10:46)
[2018-12-13] MEDS ORDERED: LIDOcaine/PRILOcaine 5gm cream TP ONE (11:10)
--- NOTE | 2018-12-13 12:30 | NUR ---
Patient arrived via wheelchair from [facility] accompanied by daughter Rashmi and her niece and was admitted to outpatient wound care for physician visit with Jeffrey Patel MD. Placed in contact isolation precautions per hospital policy. Dressing removed, wound cleansed and lidocaine applied per order. Patient assessed for changes in conditions, medications and medical history. Patient is in extreme pain with any touch and is swearing at RN and her family and requesting "more pain medication". 1135 - Dr. Patel at bedside accompanied by RN. Wound assessed, time out performed by MD/RN. Wound debrided as detailed in the physician progress/procedure note. Plan of care discussed with patient by MD with care options discussed. Dressings placed per MD orders. Patient instructed on the signs and symptoms of infection and to call the Wound Center if any occur or to go to the ED if we are closed: Increased pain in wound Increase in drainage from the wound Redness in the skin surrounding the wound Bleeding from the wound Temperature of 101 or greater Patient instructed that the weight of their body puts a large amount of pressure on their wounds. This pressure keeps the new tissue from growing and inhibits new blood vessels from forming. Explained that, if they continue to bear weight on a body part that has a wound, the time it takes to heal the wound increases, the wound may get worse or the wound may not heal at all. Patient and her family verbalized understanding of all discharge instructions and plan of care and patient is driven via wheelchair by family out to [facility] in stable condition with no sign or symptom of distress at time of discharge. Isabel at [facility] is contacted with referral for hospice written by .
[2018-12-13] MEDS ORDERED: LIDO5CRE18 (14:38)
== END 2018-12-13 12:10 | disposition home or self-care (01) ==
LOC: WOUND CARE 10:10
PROVIDERS: ATTEND Surgery
DX: I70.232 Atherosclerosis of native arteries of right leg with ulceration of calf (principal); L97.211 Non-pressure chronic ulcer of right calf limited to breakdown of skin; I70.234 Atherosclerosis of native arteries of right leg with ulceration of heel and midfoot; L89.610 Pressure ulcer of right heel, unstageable; L97.411 Non-pressure chronic ulcer of right heel and midfoot limited to breakdown of skin; L97.821 Non-pressure chronic ulcer of other part of left lower leg limited to breakdown of skin; L97.812 Non-pressure chronic ulcer of other part of right lower leg with fat layer exposed; J44.9 Chronic obstructive pulmonary disease, unspecified; L89.153 Pressure ulcer of sacral region, stage 3; G89.29 Other chronic pain; K21.9 Gastro-esophageal reflux disease without esophagitis; G43.909 Migraine, unspecified, not intractable, without status migrainosus; E46 Unspecified protein-calorie malnutrition; F17.200 Nicotine dependence, unspecified, uncomplicated; Z68.1 Body mass index [BMI] 19.9 or less, adult; Z71.6 Tobacco abuse counseling
CPT/HCPCS: 97597; 97598; A6223; A4414; A6021; A6212; A6446

== ENCOUNTER 2019-01-02 09:38 | Outpatient (CLI) | payer MEDICARE, MEDICAID ==
[~2019-01-02 09:38] MED LIST changes: +LIDO5CRE18
[2019-01-02] MEDS ORDERED: LIDOcaine 2% 5ml jelly ONE (10:32)
--- NOTE | 2019-01-02 11:00 | NUR ---
Patient arrived via wheelchair accompanied by daughter Rashmi and granddaughter Lidya from [facility] and was admitted to outpatient wound care for physician visit with Jeffrey Patel MD. Placed in contact isolation precautions per hospital policy. Dressing removed, wound cleansed and lidocaine applied per order. Patient assessed for changes in conditions, medications and medical history. 1005 - Dr. Patel at bedside accompanied by RN. Wound assessed by MD and options for plan of care discussed with patient. Dressings placed per MD orders. New antibiotic order called into patient's pharmacy. Importance of taking the antibiotic and eating to prevent stomach upset from it are discussed with patient and her family. Patient instructed on the signs and symptoms of infection and to call the Wound Center if any occur or to go to the ED if we are closed: Increased pain in wound Increase in drainage from the wound Redness in the skin surrounding the wound Bleeding from the wound Temperature of 101 or greater Patient instructed that the weight of their body puts a large amount of pressure on their wounds. This pressure keeps the new tissue from growing and inhibits new blood vessels from forming. Explained that, if they continue to bear weight on a body part that has a wound, the time it takes to heal the wound increases, the wound may get worse or the wound may not heal at all. Patient and her family verbalized understanding of all discharge instructions and plan of care and patient is driven via wheelchair by her family out to [facility] in stable condition with no sign or symptom of distress at time of discharge.
== END 2019-01-02 11:04 | disposition home or self-care (01) ==
LOC: WOUND CARE 09:38 → EDSTATUS 10:00 → WOUND CARE 11:04
PROVIDERS: ATTEND Surgery
DX: I70.232 Atherosclerosis of native arteries of right leg with ulceration of calf (principal); L97.211 Non-pressure chronic ulcer of right calf limited to breakdown of skin; I70.234 Atherosclerosis of native arteries of right leg with ulceration of heel and midfoot; L89.610 Pressure ulcer of right heel, unstageable; L97.411 Non-pressure chronic ulcer of right heel and midfoot limited to breakdown of skin; L97.821 Non-pressure chronic ulcer of other part of left lower leg limited to breakdown of skin; L97.812 Non-pressure chronic ulcer of other part of right lower leg with fat layer exposed; J44.9 Chronic obstructive pulmonary disease, unspecified; L89.153 Pressure ulcer of sacral region, stage 3; G89.29 Other chronic pain; K21.9 Gastro-esophageal reflux disease without esophagitis; G43.909 Migraine, unspecified, not intractable, without status migrainosus; E46 Unspecified protein-calorie malnutrition; F17.200 Nicotine dependence, unspecified, uncomplicated; Z68.1 Body mass index [BMI] 19.9 or less, adult; Z71.6 Tobacco abuse counseling
CPT/HCPCS: A6021; A6212; A6446; G0463

== ENCOUNTER 2019-01-23 10:10 | Day surgery (SDC) | payer MEDICARE, MEDICAID ==
--- NOTE | 2019-01-23 14:06 | NUR ---
Patient arrived safely into [facility] via wheelchair accompanied by daughter. Patient admitted to outpatient wound care for physician visit with Jeffrey Patel MD. Dressing removed, wound cleansed and lidocaine applied per order. Patient assessed for changes in conditions, medications and medical history. Dr. Patel at bedside accompanied by RN. Wound assessed, time out performed by MD/RN. Wound debrided as detailed in the physician progress/procedure note. Plan of care discussed with patient. Patient instructed to go to ER if she wants pain control. Dressings placed per MD orders. Patient instructed on the signs and symptoms of infection and to call the Wound Center if any occur or to go to the ED if we are closed: Increased pain in wound Increase in drainage from the wound Redness in the skin surrounding the wound Bleeding from the wound Temperature of 101 or greater Patient instructed that the weight of their body puts a large amount of pressure on their wounds. This pressure keeps the new tissue from growing and inhibits new blood vessels from forming. Explained that, if they continue to bear weight on a body part that has a wound, the time it takes to heal the wound increases, the wound may get worse or the wound may not heal at all. Patient verbalized understanding of all discharge instructions and plan of care. Patient left in stable condition and daughter was taking patient to ER for pain control. Addendum: 01/23/19 at 1410 by Stephanie Patel RN Amended: Links added.
== END 2019-01-23 12:20 | disposition home or self-care (01) ==
LOC: WOUND CARE 10:10
PROVIDERS: ATTEND Surgery
DX: I70.232 Atherosclerosis of native arteries of right leg with ulceration of calf (principal); L97.211 Non-pressure chronic ulcer of right calf limited to breakdown of skin; I70.234 Atherosclerosis of native arteries of right leg with ulceration of heel and midfoot; L89.610 Pressure ulcer of right heel, unstageable; L97.411 Non-pressure chronic ulcer of right heel and midfoot limited to breakdown of skin; L97.821 Non-pressure chronic ulcer of other part of left lower leg limited to breakdown of skin; L97.812 Non-pressure chronic ulcer of other part of right lower leg with fat layer exposed; L89.153 Pressure ulcer of sacral region, stage 3; J44.9 Chronic obstructive pulmonary disease, unspecified; G89.29 Other chronic pain; K21.9 Gastro-esophageal reflux disease without esophagitis; G43.909 Migraine, unspecified, not intractable, without status migrainosus; E46 Unspecified protein-calorie malnutrition; F17.200 Nicotine dependence, unspecified, uncomplicated; Z68.1 Body mass index [BMI] 19.9 or less, adult; Z71.6 Tobacco abuse counseling
CPT/HCPCS: 97597; A6243; A6446

== ENCOUNTER 2019-01-23 12:27 | Inpatient (IN) | payer MEDICARE, MEDICAID | END 2019-02-01 15:30 | LOC: SUR 3N 21:45 → ER 12:27 → SUR 3N 01-26 20:30 → ED HOLD 14:31 | PROC: 0JBN0ZZ Excision of Right Lower Leg Subcutaneous Tissue and Fascia, Open Approach (ICD-10-PCS; principal; 2019-01-26 11:06) | DX: L03.115 Cellulitis of right lower limb (principal); J43.9 Emphysema, unspecified; M81.0 Age-related osteoporosis without current pathological fracture; Z86.14 Personal history of Methicillin resistant Staphylococcus aureus infection; J44.9 Chronic obstructive pulmonary disease, unspecified ==

== ENCOUNTER 2019-05-29 10:30 | Day surgery (SDC) | payer MEDICARE, MEDICAID ==
[~2019-05-29 10:30] MED LIST changes: +GABA-530 PO; +LEVO250T58 PO; -LIDO5CRE18; -PENT400T12 PO; +PENT400T17 PO
--- NOTE | 2019-05-29 13:00 | NUR ---
Patient arrived via wheelchair from [facility] and was admitted to outpatient wound care for physician visit with Jeffrey Patel MD. Dressing removed, wound cleansed and lidocaine applied per order. Patient assessed for changes in conditions, medications and medical history. Daughter Rashmi to bedside. 1155 - Dr. Patel at bedside accompanied by RN. Wound assessed, time out performed by MD/RN. Wound debrided as detailed in the physician progress/procedure note. Plan of care discussed with patient. Dressings placed per MD orders. Patient instructed on the signs and symptoms of infection and to call the Wound Center if any occur or to go to the ED if we are closed: Increased pain in wound Increase in drainage from the wound Redness in the skin surrounding the wound Bleeding from the wound Temperature of 101 or greater Patient instructed that the weight of their body puts a large amount of pressure on their wounds. This pressure keeps the new tissue from growing and inhibits new blood vessels from forming. Explained that, if they continue to bear weight on a body part that has a wound, the time it takes to heal the wound increases, the wound may get worse or the wound may not heal at all. Patient and Rashmi verbalized understanding of all discharge instructions and plan of care and patient taken via wheelchair by Rashmi out to [facility] in stable condition with no sign or symptom of distress at time of discharge. [facility] contacted with orders.
== END 2019-05-29 12:35 | disposition home or self-care (01) ==
LOC: WOUND CARE 10:30
PROVIDERS: ATTEND Surgery
DX: I70.232 Atherosclerosis of native arteries of right leg with ulceration of calf (principal); L97.211 Non-pressure chronic ulcer of right calf limited to breakdown of skin; I70.234 Atherosclerosis of native arteries of right leg with ulceration of heel and midfoot; L97.411 Non-pressure chronic ulcer of right heel and midfoot limited to breakdown of skin; L97.812 Non-pressure chronic ulcer of other part of right lower leg with fat layer exposed; J44.9 Chronic obstructive pulmonary disease, unspecified; G89.29 Other chronic pain; K21.9 Gastro-esophageal reflux disease without esophagitis; G43.909 Migraine, unspecified, not intractable, without status migrainosus; E46 Unspecified protein-calorie malnutrition; F17.200 Nicotine dependence, unspecified, uncomplicated; Z68.1 Body mass index [BMI] 19.9 or less, adult; Z71.6 Tobacco abuse counseling
CPT/HCPCS: 97597; A6223; 97598; A6021; A6446

== ENCOUNTER 2019-09-05 10:09 | Inpatient (IN) | payer MEDICARE, MEDICAID ==
[~2019-09-05] VITALS: Ht 160 cm; Wt 40.9 kg
[2019-09-05] MEDS ORDERED: fentaNYL/PF 50MCG/1 ML 2ML syringe IV ONE ×2 (12:10)
[2019-09-05] MEDS ORDERED: morphine 2 MG/ML inj. syringe IV ONE (12:30)
--- NOTE | 2019-09-05 12:37 | NUR ---
[facility], [phone] JENNY. PT EVICTED FROM [facility]. STAFF FROM [facility] WERE TO SEE HER TODAY. JENNY TO CALL BACK IN 15MIN TO FIND OUT ADMIT OR NOT.
[2019-09-05 13:05] LABS: BASOPHILS # (AUTO) 0.1 X10'3 (0-0.2); BASOPHILS % (AUTO) 0.4 % (0-1); EOSINOPHILS # (AUTO) 0.1 X10'3 (0-0.9); EOSINOPHILS % (AUTO) 0.8 % (0-6); HEMATOCRIT 40.6 % (35.0-45.0); HEMOGLOBIN 13.6 g/dl (12.0-16.0); LYMPHOCYTES % (AUTO) 40.9 % (21-51); MEAN CORPUSCULAR HEMOGLOBIN 30.7 PG (27.0-31.0); MEAN CORPUSCULAR HGB CONC 33.4 g/dL (33.0-36.5); MEAN CORPUSCULAR VOLUME 91.8 FL (78-98); MEAN PLATELET VOLUME 8.1 FL (7.4-10.4); MONOCYTES # (AUTO) 0.7 X10'3 (0-0.9); MONOCYTES % (AUTO) 5.6 % (2-12); NEUTROPHILS # (AUTO) 6.4 X10'3 (1.8-7.7); NEUTROPHILS % (AUTO) 52.3 % (42-75); PLATELET COUNT 376 X10'3 (140-440); RED BLOOD COUNT 4.42 X10'6 (4.20-5.60); RED CELL DISTRIBUTION WIDTH 15.2 % (11.5-14.5); WHITE BLOOD COUNT 12.3 X10'3 (4.5-11.0)
--- NOTE | 2019-09-05 13:13 | NUR ---
JENNY UPDATED, PT ADMITTED.
[2019-09-05 13:22] LABS: PARTIAL THROMBOPLASTIN TIME 32 SECONDS (22-32)
[2019-09-05] MEDS ORDERED: vancomycin/NS 1 GM ADD-VANTAGE 250 ML IV ONE (13:25)
[2019-09-05] MEDS ORDERED: piperacillin/tazo 3.375gm/50ml 50 ML IV ONE (13:25)
[2019-09-05 13:30] LABS: ALANINE AMINOTRANSFERASE 12 U/L (12-78); ALBUMIN 3.2 G/DL (3.4-5.0); ALBUMIN/GLOBULIN RATIO 0.8 (1.1-1.5); ALKALINE PHOSPHATASE 91 IU/L (46-116); ANION GAP 9 (8-16); ASPARTATE AMINO TRANSFERASE 12 U/L (10-37); BILIRUBIN,TOTAL 0.3 MG/DL (0.1-1.0); BLOOD UREA NITROGEN 23 MG/DL (7-18); BUN/CREATININE RATIO 43.4 (6.6-38.0); C-REACTIVE PROTEIN 1.63 MG/DL (0.0-0.5); CALCIUM 8.9 MG/DL (8.5-10.1); CHLORIDE 107 MMOL/L (99-107); CREATININE 0.53 MG/DL (0.40-0.90); GLUCOSE 85 MG/DL (70-104); MAGNESIUM 1.8 MG/DL (1.5-2.4); POTASSIUM 3.5 MMOL/L (3.5-5.1); SODIUM 144 MMOL/L (135-145); TOTAL CARBON DIOXIDE 27.8 MMOL/L (24-32); TOTAL PROTEIN 7.2 G/DL (6.4-8.2); eGFR > 90 ML/MIN
[2019-09-05 14:26] LABS: CLARITY,URINE TURBID (Clear); COLOR,URINE YELLOW (Yellow); GLUCOSE, URINE NEGATIVE (Neg); KETONES,URINE TRACE mg/dl (Neg); LEUKOCYTE ESTERASE ,URINE TRACE (Neg); NITRITES, URINE POSITIVE (Neg); OCCULT BLOOD,URINE NEGATIVE (Neg); PROTEIN,URINE TRACE mg/dl (Neg)
[2019-09-05 14:29] LABS: UA COLLECTION TYPE STRAIGHT CATH
[2019-09-05] MEDS ORDERED: morphine 2 MG/ML inj. syringe IV PRN (14:30)
[2019-09-05] MEDS ORDERED: mag hydrox/Alum hydrox/simeth 30ml oral suspension PO PRN (14:30)
[2019-09-05] MEDS ORDERED: ondansetron/PF 4mg/2ml inj IV PRN (14:30)
[2019-09-05] MEDS ORDERED: acetaminophen 325mg tablet PO PRN (14:30)
[2019-09-05] MEDS ORDERED: vancomycin/NS 1 GM ADD-VANTAGE 250 ML IV SCH (14:30)
[2019-09-05 14:35] LABS: BACTERIA,URINE 3+ /HPF (Neg)
[2019-09-05 14:36] LABS: MUCUS STRANDS MANY /LPF (Neg); WBC,URINE 50-100 /HPF (0-4)
[2019-09-05 14:37] LABS: CAL OXALATE CRYSTALS 1+ /HPF (NEGATIVE); SQUAMOUS EPITHELIAL CELL,UR FEW /LPF (FEW)
[2019-09-05 14:38] LABS: RBC,URINE 0-2 /HPF (0-2)
[2019-09-05] MEDS: dextrose 5%-1/2 normal saline 1,000 ML IV SCH (15:30)
[2019-09-05] MEDS: morphine 2 MG/ML inj. syringe IV PRN ×2 (16:18→20:24)
[2019-09-05 17:00] VITALS: BP 108/55
[2019-09-05] MEDS: vancomycin/NS 1 GM ADD-VANTAGE 250 ML IV SCH (18:00)
[2019-09-05] MEDS ORDERED: ACET-2119 PO (18:08)
[2019-09-05] MEDS ORDERED: NAPR220T67 PO (18:08)
--- NOTE | 2019-09-05 18:54 | NUR ---
Problems reprioritized. Patient report given, questions answered & plan of care reviewed with Gem HANSEN.
--- NOTE | 2019-09-05 18:55 | NUR ---
Patient in room [facility]. I have received report from ISSA HANSEN and had the opportunity to ask questions and assume patient care.
[2019-09-05 20:00] VITALS: BP 97/54
[2019-09-05] MEDS: heparin, porcine 5000 units/ml vial SQ SCH (20:23)
[2019-09-06] VITALS: BP 88/52
[2019-09-06] MEDS ORDERED: cefepime inj. 1 GM in normal saline 100ml IV soln 100 ML IV SCH ×2
[2019-09-06] MEDS: dextrose 5%-1/2 normal saline 1,000 ML IV SCH ×3 (00:44→20:27)
[2019-09-06] MEDS: morphine 2 MG/ML inj. syringe IV PRN ×4 (00:45→19:45)
[2019-09-06 05:10] LABS: ALBUMIN 2.3 G/DL (3.4-5.0); ANION GAP 4 (8-16); BLOOD UREA NITROGEN 19 MG/DL (7-18); BUN/CREATININE RATIO 39.6 (6.6-38.0); CALCIUM 8.3 MG/DL (8.5-10.1); CHLORIDE 110 MMOL/L (99-107); CREATININE 0.48 MG/DL (0.40-0.90); GLUCOSE 113 MG/DL (70-104); POTASSIUM 3.4 MMOL/L (3.5-5.1); SODIUM 143 MMOL/L (135-145); TOTAL CARBON DIOXIDE 28.6 MMOL/L (24-32); eGFR > 90 ML/MIN
[2019-09-06 05:28] LABS: BASOPHILS # (AUTO) 0.1 X10'3 (0-0.2); BASOPHILS % (AUTO) 0.5 % (0-1); EOSINOPHILS # (AUTO) 0.2 X10'3 (0-0.9); EOSINOPHILS % (AUTO) 2.2 % (0-6); HEMATOCRIT 33.5 % (35.0-45.0); HEMOGLOBIN 11.4 g/dl (12.0-16.0); LYMPHOCYTES # (AUTO) 4.7 X10'3 (1.1-4.8); LYMPHOCYTES % (AUTO) 48.6 % (21-51); MEAN CORPUSCULAR HEMOGLOBIN 31.5 PG (27.0-31.0); MEAN CORPUSCULAR HGB CONC 34.1 g/dL (33.0-36.5); MEAN CORPUSCULAR VOLUME 92.4 FL (78-98); MEAN PLATELET VOLUME 8.6 FL (7.4-10.4); MONOCYTES # (AUTO) 0.5 X10'3 (0-0.9); MONOCYTES % (AUTO) 5.3 % (2-12); NEUTROPHILS # (AUTO) 4.2 X10'3 (1.8-7.7); NEUTROPHILS % (AUTO) 43.4 % (42-75); PLATELET COUNT 298 X10'3 (140-440); RED BLOOD COUNT 3.62 X10'6 (4.20-5.60); RED CELL DISTRIBUTION WIDTH 15.2 % (11.5-14.5); WHITE BLOOD COUNT 9.7 X10'3 (4.5-11.0)
--- NOTE | 2019-09-06 06:21 | NUR ---
Problems reprioritized. Patient report given, questions answered & plan of care reviewed with DESIREE HANSEN.
[2019-09-06 07:00] VITALS: BP 96/53
[2019-09-06] MEDS ORDERED: cefepime inj. 1 GM in dextrose 5%-water 50ml 50 ML IV SCH (08:00)
[2019-09-06] MEDS: heparin, porcine 5000 units/ml vial SQ SCH ×3 (08:08→21:44)
[2019-09-06] MEDS: HYDROcodone/acetaminophen 5mg/325mg tablet PO PRN ×3 (10:38→21:57)
[2019-09-06] MEDS ORDERED: potassium CL 10mEq/100ml bag 100 ML IV PRN (11:10)
[2019-09-06] MEDS ORDERED: potassium Cl 20 mEq SR tablet PO PRN (11:10)
[2019-09-06] MEDS ORDERED: magnesium Cl slow-release 64mg tablet PO PRN (11:10)
[2019-09-06] MEDS ORDERED: magnesium 4gm in 100ml NS 100 ML IV PRN (11:10)
--- NOTE | 2019-09-06 11:35 | NUR ---
Call received from Ean [employer] (ph # [phone]) stating pt needs to call Communications Lead at [phone] re: eviction notice. Message delivered to patient. Social Service consult order is on chart and page sent to Claim Attorney. Primary RN, Nicky, notified.
[2019-09-06 12:00] VITALS: BP 128/64
[2019-09-06] MEDS: potassium Cl 20 mEq SR tablet PO PRN ×2 (13:34→21:57)
[2019-09-06] MEDS: cefepime 1GM in D5W 50mL 50 ML IV SCH (15:36)
--- NOTE | 2019-09-06 17:11 | NUR ---
Nutrition consult regarding wounds and malnutrition. Pt admit with RLE chronic wounds with likely acute infection per MD notes. Pt seen at bedside reports UBW 90 lbs which is consistent with wt hx in EMR and current documented wt. Pt reports no wt loss however states that a few months ago patient's weight was fluctuating. Pt appears cachectic and is documented with severe muscle weakness meeting criteria for malnutrition, MD notified. Pt provided with written and verbal protein and malnutrition education with ONS recommendation for discharge, ONS coupons, and RD contact information. Pt currently on a regular diet documented with 75-100% PO intake likely meeting nutrient needs. Pt agrees to chocolate protein shake BIDBL made with Romero for wound healing needs, d/w RN. LBM 09/06. Will continue to follow. Recommendations: 1) Continue regular diet 2) Chocolate Romero protein shake BIDLD 3) Bowel care 4) Wt per rx Addendum: 09/06/19 at [address] Amended: Links added.
[2019-09-06] MEDS: vancomycin/NS 1 GM ADD-VANTAGE 250 ML IV SCH (17:55)
--- NOTE | 2019-09-06 18:04 | NUR ---
Student documentation: I have reviewed all interventions, assessments performed and documented by Jeff. Jeyson CARTER.
--- NOTE | 2019-09-06 18:30 | NUR ---
Patient in room [facility]. I have received report from DESIREE HANSEN and had the opportunity to ask questions and assume patient care.
[2019-09-06] MEDS: JUVEN Shake w/Arg/Glut/Ca2+Bmb (Juven 19.3gm) pkt 240ml PO SCH (18:44)
[2019-09-06] MEDS: lactobacillus rhamnosus 10,000 MMU CELLS/CAPSULE PO SCH (19:45)
[2019-09-06 20:00] VITALS: BP 108/43
[2019-09-07] VITALS: BP 120/62
[2019-09-07] MEDS: cefepime 1GM in D5W 50mL 50 ML IV SCH ×3 (00:12→16:21)
[2019-09-07] MEDS: morphine 2 MG/ML inj. syringe IV PRN ×2 (00:13→19:32)
[2019-09-07] MEDS: dextrose 5%-1/2 normal saline 1,000 ML IV SCH (04:03)
[2019-09-07 05:20] LABS: EOSINOPHILS # (AUTO) 0.2 X10'3 (0-0.9); LYMPHOCYTES # (AUTO) 4.9 X10'3 (1.1-4.8); MEAN PLATELET VOLUME 8.7 FL (7.4-10.4); RED CELL DISTRIBUTION WIDTH 15.3 % (11.5-14.5)
[2019-09-07 05:27] LABS: BASOPHILS # (AUTO) 0.1 X10'3 (0-0.2); BASOPHILS % (AUTO) 0.8 % (0-1); EOSINOPHILS % (AUTO) 2.8 % (0-6); HEMATOCRIT 32.3 % (35.0-45.0); LYMPHOCYTES % (AUTO) 56.3 % (21-51); MEAN CORPUSCULAR HEMOGLOBIN 31.3 PG (27.0-31.0); MEAN CORPUSCULAR VOLUME 92.2 FL (78-98); MONOCYTES # (AUTO) 0.6 X10'3 (0-0.9); MONOCYTES % (AUTO) 6.8 % (2-12); NEUTROPHILS # (AUTO) 2.9 X10'3 (1.8-7.7); NEUTROPHILS % (AUTO) 33.3 % (42-75); PLATELET COUNT 288 X10'3 (140-440); RED BLOOD COUNT 3.51 X10'6 (4.20-5.60); WHITE BLOOD COUNT 8.8 X10'3 (4.5-11.0)
[2019-09-07 05:39] LABS: ALBUMIN 2.3 G/DL (3.4-5.0); ANION GAP 5 (8-16); BLOOD UREA NITROGEN 16 MG/DL (7-18); BUN/CREATININE RATIO 29.1 (6.6-38.0); CALCIUM 7.9 MG/DL (8.5-10.1); CHLORIDE 112 MMOL/L (99-107); CREATININE 0.55 MG/DL (0.40-0.90); GLUCOSE 102 MG/DL (70-104); POTASSIUM 4.4 MMOL/L (3.5-5.1); SODIUM 144 MMOL/L (135-145); TOTAL CARBON DIOXIDE 26.7 MMOL/L (24-32); eGFR > 90 ML/MIN
--- NOTE | 2019-09-07 06:30 | NUR ---
Problems reprioritized. Patient report given, questions answered & plan of care reviewed with DESIREE HANSEN.
[2019-09-07 07:27] LABS: ANISOCYTOSIS 1+; PLATELET ESTIMATE NORMAL; TOTAL CELLS COUNTED 100
[2019-09-07 07:28] LABS: POIKILOCYTOSIS FEW
[2019-09-07] MEDS: heparin, porcine 5000 units/ml vial SQ SCH ×2 (08:00→19:33)
[2019-09-07] MEDS: lactobacillus rhamnosus 10,000 MMU CELLS/CAPSULE PO SCH ×2 (08:26→19:33)
[2019-09-07] MEDS: HYDROcodone/acetaminophen 5mg/325mg tablet PO PRN ×3 (08:26→22:31)
[2019-09-07] MEDS: JUVEN Shake w/Arg/Glut/Ca2+Bmb (Juven 19.3gm) pkt 240ml PO SCH ×3 (08:29→18:15)
--- NOTE | 2019-09-07 08:36 | NUR ---
PT REFUSING TO ALLOW ME TO PLACE A PILLOW TO RELIEVE PRESSURE OFF BOTTOM. WILL CONT TO TRY.
[2019-09-07 11:00] VITALS: BP_SYST 123; BP_SYST 135; BP_DIAS 78; BP_DIAS 81
[2019-09-07] MEDS: vancomycin/NS 1 GM ADD-VANTAGE 250 ML IV SCH (16:00)
--- NOTE | 2019-09-07 18:16 | NUR ---
Problems reprioritized. Patient report given, questions answered & plan of care reviewed with NORA MELENDEZ RN.
--- NOTE | 2019-09-07 18:30 | NUR ---
Patient in room [facility]. I have received report from DESIREE HANSEN and had the opportunity to ask questions and assume patient care.
[2019-09-07 20:00] VITALS: BP 113/56
[2019-09-08] VITALS: BP 98/50
[2019-09-08] MEDS: cefepime 1GM in D5W 50mL 50 ML IV SCH ×2 (00:46→07:52)
[2019-09-08 05:12] LABS: BASOPHILS # (AUTO) 0.1 X10'3 (0-0.2); EOSINOPHILS # (AUTO) 0.2 X10'3 (0-0.9); HEMOGLOBIN 11.3 g/dl (12.0-16.0); LYMPHOCYTES # (AUTO) 5.2 X10'3 (1.1-4.8); MONOCYTES # (AUTO) 0.7 X10'3 (0-0.9); NEUTROPHILS # (AUTO) 2.8 X10'3 (1.8-7.7)
[2019-09-08 05:15] LABS: BASOPHILS % (AUTO) 0.7 % (0-1); EOSINOPHILS % (AUTO) 2.3 % (0-6); HEMATOCRIT 33.1 % (35.0-45.0); LYMPHOCYTES % (AUTO) 57.7 % (21-51); MEAN CORPUSCULAR HEMOGLOBIN 31.2 PG (27.0-31.0); MEAN CORPUSCULAR HGB CONC 34.1 g/dL (33.0-36.5); MEAN CORPUSCULAR VOLUME 91.4 FL (78-98); MEAN PLATELET VOLUME 8.3 FL (7.4-10.4); MONOCYTES % (AUTO) 7.8 % (2-12); NEUTROPHILS % (AUTO) 31.5 % (42-75); PLATELET COUNT 314 X10'3 (140-440); RED BLOOD COUNT 3.61 X10'6 (4.20-5.60); WHITE BLOOD COUNT 8.9 X10'3 (4.5-11.0)
[2019-09-08 05:17] LABS: ALBUMIN 2.3 G/DL (3.4-5.0); ANION GAP 6 (8-16); BLOOD UREA NITROGEN 13 MG/DL (7-18); BUN/CREATININE RATIO 26.5 (6.6-38.0); CALCIUM 8.5 MG/DL (8.5-10.1); CHLORIDE 108 MMOL/L (99-107); CREATININE 0.49 MG/DL (0.40-0.90); GLUCOSE 92 MG/DL (70-104); POTASSIUM 3.8 MMOL/L (3.5-5.1); SODIUM 142 MMOL/L (135-145); eGFR > 90 ML/MIN
[2019-09-08] MEDS: HYDROcodone/acetaminophen 5mg/325mg tablet PO PRN ×4 (05:35→22:06)
--- NOTE | 2019-09-08 06:31 | NUR ---
Problems reprioritized. Patient report given, questions answered & plan of care reviewed with DIANA RN.
--- NOTE | 2019-09-08 06:45 | NUR ---
Patient in room [facility]. I have received report from Velvet Verdin RN and had the opportunity to ask questions and assume patient care.
[2019-09-08 07:20] VITALS: BP 102/52
[2019-09-08] MEDS: lactobacillus rhamnosus 10,000 MMU CELLS/CAPSULE PO SCH ×2 (07:51→19:57)
[2019-09-08] MEDS: heparin, porcine 5000 units/ml vial SQ SCH ×3 (07:52→20:00)
[2019-09-08] MEDS: JUVEN Shake w/Arg/Glut/Ca2+Bmb (Juven 19.3gm) pkt 240ml PO SCH ×3 (08:00→19:00)
[2019-09-08 08:22] LABS: BASOPHILS % (MANUAL) 0.5 % (0-1); NEUTROPHILS % (MANUAL) 30.5 % (42-75); TOTAL CELLS COUNTED 200
[2019-09-08] MEDS ORDERED: CefTRIAXone/D5W-Rocephin 1gm 50 ML IV SCH (08:25)
[2019-09-08 08:28] LABS: ANISOCYTOSIS 1+; PLATELET ESTIMATE NORMAL; POIKILOCYTOSIS FEW
[2019-09-08] MEDS: linezolid 600mg tablet PO SCH ×2 (10:19→19:57)
[2019-09-08 12:14] VITALS: BP 110/51
[2019-09-08] MEDS: ciprofloxacin 250mg tablet PO SCH ×2 (12:43→19:57)
[2019-09-08] MEDS ORDERED: VANCOMYCIN LEVEL IV ONE (15:30)
[2019-09-08] MEDS: morphine 2 MG/ML inj. syringe IV PRN (17:51)
--- NOTE | 2019-09-08 18:57 | NUR ---
Problems reprioritized. Patient report given, questions answered & plan of care reviewed with Velvet Verdin RN.
--- NOTE | 2019-09-08 18:58 | NUR ---
Patient in room [facility]. I have received report from DIANA HANSEN and had the opportunity to ask questions and assume patient care.
[2019-09-08 20:00] VITALS: BP 116/53
[2019-09-09] VITALS: BP 114/61
[2019-09-09] MEDS: HYDROcodone/acetaminophen 5mg/325mg tablet PO PRN ×3 (05:11→20:21)
[2019-09-09 05:26] LABS: BASOPHILS # (AUTO) 0.1 X10'3 (0-0.2); EOSINOPHILS # (AUTO) 0.2 X10'3 (0-0.9); HEMOGLOBIN 11.1 g/dl (12.0-16.0); MONOCYTES # (AUTO) 0.7 X10'3 (0-0.9); NEUTROPHILS # (AUTO) 1.6 X10'3 (1.8-7.7)
[2019-09-09 05:33] LABS: BASOPHILS % (AUTO) 0.8 % (0-1); EOSINOPHILS % (AUTO) 2.4 % (0-6); HEMATOCRIT 32.3 % (35.0-45.0); LYMPHOCYTES # (AUTO) 5.7 X10'3 (1.1-4.8); LYMPHOCYTES % (AUTO) 69.6 % (21-51); MEAN CORPUSCULAR HEMOGLOBIN 31.4 PG (27.0-31.0); MEAN CORPUSCULAR HGB CONC 34.4 g/dL (33.0-36.5); MEAN CORPUSCULAR VOLUME 91.2 FL (78-98); MONOCYTES % (AUTO) 8.1 % (2-12); NEUTROPHILS % (AUTO) 19.1 % (42-75); PLATELET COUNT 329 X10'3 (140-440); RED BLOOD COUNT 3.54 X10'6 (4.20-5.60); WHITE BLOOD COUNT 8.1 X10'3 (4.5-11.0)
[2019-09-09 05:42] LABS: ALBUMIN 2.3 G/DL (3.4-5.0); ANION GAP 8 (8-16); BLOOD UREA NITROGEN 13 MG/DL (7-18); BUN/CREATININE RATIO 22.8 (6.6-38.0); CALCIUM 8.3 MG/DL (8.5-10.1); CHLORIDE 108 MMOL/L (99-107); CREATININE 0.57 MG/DL (0.40-0.90); GLUCOSE 95 MG/DL (70-104); POTASSIUM 3.8 MMOL/L (3.5-5.1); SODIUM 145 MMOL/L (135-145); TOTAL CARBON DIOXIDE 29.4 MMOL/L (24-32); eGFR > 90 ML/MIN
--- NOTE | 2019-09-09 06:20 | NUR ---
Patient in room [facility]. I have received report from NORA MELENDEZ RN and had the opportunity to ask questions and assume patient care.
[2019-09-09 06:24] LABS: ELLIPTOCYTES FEW; PLATELET ESTIMATE NORMAL; TOTAL CELLS COUNTED 100
[2019-09-09 07:00] VITALS: BP 105/61
[2019-09-09] MEDS: ciprofloxacin 250mg tablet PO SCH ×2 (07:28→20:22)
[2019-09-09] MEDS: lactobacillus rhamnosus 10,000 MMU CELLS/CAPSULE PO SCH ×2 (07:28→20:22)
[2019-09-09] MEDS: linezolid 600mg tablet PO SCH ×2 (07:28→20:17)
[2019-09-09] MEDS: heparin, porcine 5000 units/ml vial SQ SCH ×2 (07:29→20:22)
[2019-09-09] MEDS: morphine 2 MG/ML inj. syringe IV PRN ×3 (07:32→22:38)
[2019-09-09] MEDS: JUVEN Shake w/Arg/Glut/Ca2+Bmb (Juven 19.3gm) pkt 240ml PO SCH ×3 (08:00→18:49)
[2019-09-09 11:00] VITALS: BP 101/50
--- NOTE | 2019-09-09 15:00 | NUR ---
Patient refused wound pictures today until wound dressing is due tomorrow. Patient states too painful.
--- NOTE | 2019-09-09 16:43 | NUR ---
reassessment: Pt PO decreased to 50% avg meals w/ 25% Romero shake still meeting needs. LBM 09/07. Started on zyvox. Pt seen by RD for written/verbal zyvox ed w/ RD contact information provided. Will continue to monitor. Recommendations: 1) Continue regular diet 2) Chocolate Romero protein shake BIDLD 3) Bowel care 4) Wt per rx Addendum: 09/09/19 at [address] Amended: Links added.
--- NOTE | 2019-09-09 18:46 | NUR ---
Problems reprioritized. Patient report given, questions answered & plan of care reviewed with Lili RN.
[2019-09-09 19:30] VITALS: BP_SYST 121; BP_SYST 95; BP_DIAS 51; BP_DIAS 59
[2019-09-09 23:00] VITALS: BP 95/51
[2019-09-10] MEDS: morphine 2 MG/ML inj. syringe IV PRN (05:42)
[2019-09-10 06:14] LABS: BASOPHILS # (AUTO) 0.1 X10'3 (0-0.2); BASOPHILS % (AUTO) 1.2 % (0-1); EOSINOPHILS # (AUTO) 0.2 X10'3 (0-0.9); EOSINOPHILS % (AUTO) 2.4 % (0-6); HEMATOCRIT 32.5 % (35.0-45.0); HEMOGLOBIN 10.9 g/dl (12.0-16.0); LYMPHOCYTES % (AUTO) 57.8 % (21-51); MEAN CORPUSCULAR HEMOGLOBIN 30.9 PG (27.0-31.0); MEAN CORPUSCULAR HGB CONC 33.4 g/dL (33.0-36.5); MEAN CORPUSCULAR VOLUME 92.4 FL (78-98); MEAN PLATELET VOLUME 7.9 FL (7.4-10.4); MONOCYTES # (AUTO) 0.5 X10'3 (0-0.9); MONOCYTES % (AUTO) 6.3 % (2-12); NEUTROPHILS # (AUTO) 2.8 X10'3 (1.8-7.7); NEUTROPHILS % (AUTO) 32.3 % (42-75); PLATELET COUNT 322 X10'3 (140-440); RED BLOOD COUNT 3.51 X10'6 (4.20-5.60); RED CELL DISTRIBUTION WIDTH 14.9 % (11.5-14.5); WHITE BLOOD COUNT 8.6 X10'3 (4.5-11.0)
[2019-09-10 06:23] LABS: ALBUMIN 2.3 G/DL (3.4-5.0); ANION GAP 5 (8-16); BLOOD UREA NITROGEN 12 MG/DL (7-18); BUN/CREATININE RATIO 22.2 (6.6-38.0); CALCIUM 8.9 MG/DL (8.5-10.1); CHLORIDE 109 MMOL/L (99-107); CREATININE 0.54 MG/DL (0.40-0.90); GLUCOSE 92 MG/DL (70-104); POTASSIUM 3.6 MMOL/L (3.5-5.1); SODIUM 144 MMOL/L (135-145); TOTAL CARBON DIOXIDE 30.1 MMOL/L (24-32); eGFR > 90 ML/MIN
--- NOTE | 2019-09-10 06:30 | NUR ---
Patient in room [facility]. I have received report from Pat RN and had the opportunity to ask questions and assume patient care.
[2019-09-10] MEDS: JUVEN Shake w/Arg/Glut/Ca2+Bmb (Juven 19.3gm) pkt 240ml PO SCH ×3 (08:00→19:21)
[2019-09-10] MEDS: heparin, porcine 5000 units/ml vial SQ SCH ×3 (09:05→21:19)
[2019-09-10] MEDS: linezolid 600mg tablet PO SCH ×2 (09:05→21:13)
[2019-09-10] MEDS: lactobacillus rhamnosus 10,000 MMU CELLS/CAPSULE PO SCH ×2 (09:05→21:13)
[2019-09-10] MEDS: ciprofloxacin 250mg tablet PO SCH ×2 (09:06→21:13)
[2019-09-10 09:17] VITALS: BP 97/53
[2019-09-10] MEDS: HYDROcodone/acetaminophen 5mg/325mg tablet PO PRN ×4 (09:35→23:34)
[2019-09-10 11:28] VITALS: BP 90/53
[2019-09-10 12:10] LABS: TOTAL CELLS COUNTED 100
[2019-09-10 12:13] LABS: ACANTHOCYTES FEW; BURR CELLS FEW; ELLIPTOCYTES 1+; PLATELET ESTIMATE NORMAL; SCHISTOCYTES FEW; SMUDGE CELLS 2+
--- NOTE | 2019-09-10 18:30 | NUR ---
Patient in room [facility]. I have received report from ЕКАТЕРИНА HANSEN and had the opportunity to ask questions and assume patient care.
[2019-09-10 20:00] VITALS: BP 107/66
[2019-09-11] VITALS: BP 123/61
--- NOTE | 2019-09-11 06:10 | NUR ---
Problems reprioritized. Patient report given, questions answered & plan of care reviewed with ЕКАТЕРИНА HANSEN.
--- NOTE | 2019-09-11 06:14 | NUR ---
Patient in room [facility]. I have received report from night nurses and had the opportunity to ask questions and assume patient care.
--- NOTE | 2019-09-11 06:39 | NUR ---
Patient in room [facility]. I have received report from Amelia HANSEN and had the opportunity to ask questions and assume patient care.
[2019-09-11 07:11] VITALS: BP 111/54
[2019-09-11] MEDS: heparin, porcine 5000 units/ml vial SQ SCH ×3 (08:00→19:51)
[2019-09-11] MEDS: HYDROcodone/acetaminophen 5mg/325mg tablet PO PRN ×3 (08:20→21:36)
[2019-09-11] MEDS: linezolid 600mg tablet PO SCH ×2 (08:20→19:44)
[2019-09-11] MEDS: lactobacillus rhamnosus 10,000 MMU CELLS/CAPSULE PO SCH ×2 (08:20→19:44)
[2019-09-11] MEDS: ciprofloxacin 250mg tablet PO SCH ×2 (08:21→19:44)
[2019-09-11] MEDS: JUVEN Shake w/Arg/Glut/Ca2+Bmb (Juven 19.3gm) pkt 240ml PO SCH ×3 (08:24→19:00)
[2019-09-11] MEDS: morphine 2 MG/ML inj. syringe IV PRN (10:40)
--- NOTE | 2019-09-11 11:01 | NUR ---
PAGER ID: [phone] MESSAGE: [phone] White: her IV is bad and doesn't want another one. She is on PO abx and no fluids ordered. Is it ok to keep out? Yulisa [id number]
[2019-09-11 12:32] VITALS: BP 106/61
[2019-09-11 12:46] LABS: ANISOCYTOSIS 1+
[2019-09-11] MEDS ORDERED: magnesium 4gm in 100ml NS 100 ML IV PRN (17:45)
[2019-09-11] MEDS ORDERED: potassium CL 10mEq/100ml bag 100 ML IV PRN (17:45)
[2019-09-11] MEDS ORDERED: magnesium Cl slow-release 64mg tablet PO PRN (17:45)
[2019-09-11] MEDS ORDERED: potassium Cl 20 mEq SR tablet PO PRN ×2 (17:45)
--- NOTE | 2019-09-11 18:19 | NUR ---
Problems reprioritized. Patient report given, questions answered & plan of care reviewed with Amelia HANSEN.
--- NOTE | 2019-09-11 18:30 | NUR ---
Patient in room [facility]. I have received report from ЕКАТЕРИНА HANSEN and had the opportunity to ask questions and assume patient care.
[2019-09-11 20:00] VITALS: BP 109/49
[2019-09-12] VITALS: BP 96/50
[2019-09-12] MEDS: HYDROcodone/acetaminophen 5mg/325mg tablet PO PRN ×5 (02:01→23:08)
[2019-09-12 05:04] LABS: BASOPHILS # (AUTO) 0.1 X10'3 (0-0.2); BASOPHILS % (AUTO) 0.8 % (0-1); EOSINOPHILS # (AUTO) 0.1 X10'3 (0-0.9); EOSINOPHILS % (AUTO) 1.9 % (0-6); HEMATOCRIT 30.2 % (35.0-45.0); HEMOGLOBIN 10.2 g/dl (12.0-16.0); LYMPHOCYTES # (AUTO) 4.7 X10'3 (1.1-4.8); LYMPHOCYTES % (AUTO) 61.1 % (21-51); MEAN CORPUSCULAR HEMOGLOBIN 31.1 PG (27.0-31.0); MEAN CORPUSCULAR HGB CONC 33.9 g/dL (33.0-36.5); MEAN CORPUSCULAR VOLUME 91.5 FL (78-98); MEAN PLATELET VOLUME 7.7 FL (7.4-10.4); MONOCYTES # (AUTO) 0.6 X10'3 (0-0.9); MONOCYTES % (AUTO) 7.5 % (2-12); NEUTROPHILS # (AUTO) 2.2 X10'3 (1.8-7.7); NEUTROPHILS % (AUTO) 28.7 % (42-75); PLATELET COUNT 331 X10'3 (140-440); RED CELL DISTRIBUTION WIDTH 15.1 % (11.5-14.5); WHITE BLOOD COUNT 7.6 X10'3 (4.5-11.0)
[2019-09-12 05:23] LABS: ALANINE AMINOTRANSFERASE 12 U/L (12-78); ALBUMIN 2.4 G/DL (3.4-5.0); ALBUMIN/GLOBULIN RATIO 0.8 (1.1-1.5); ALKALINE PHOSPHATASE 65 IU/L (46-116); ANION GAP 8 (8-16); ASPARTATE AMINO TRANSFERASE 15 U/L (10-37); BILIRUBIN,TOTAL 0.3 MG/DL (0.1-1.0); BLOOD UREA NITROGEN 18 MG/DL (7-18); CALCIUM 8.7 MG/DL (8.5-10.1); CHLORIDE 107 MMOL/L (99-107); GLUCOSE 90 MG/DL (70-104); MAGNESIUM 1.8 MG/DL (1.5-2.4); PHOSPHORUS 3.7 MG/DL (2.3-4.5); POTASSIUM 3.8 MMOL/L (3.5-5.1); SODIUM 143 MMOL/L (135-145); TOTAL CARBON DIOXIDE 28.4 MMOL/L (24-32); TOTAL PROTEIN 5.5 G/DL (6.4-8.2); eGFR > 90 ML/MIN
--- NOTE | 2019-09-12 06:30 | NUR ---
Problems reprioritized. Patient report given, questions answered & plan of care reviewed with JIM RN.
--- NOTE | 2019-09-12 06:47 | NUR ---
Patient in room [facility]. I have received report from Amelia HANSEN and had the opportunity to ask questions and assume patient care.
--- NOTE | 2019-09-12 07:19 | NUR ---
Patient in room [facility]. I have received report from Amelia HANSEN and had the opportunity to ask questions and assume patient care.
[2019-09-12 07:36] LABS: PLATELET ESTIMATE NORMAL; SMUDGE CELLS 2+; TOTAL CELLS COUNTED 100
[2019-09-12 07:37] LABS: BURR CELLS FEW; ELLIPTOCYTES 1+; SCHISTOCYTES FEW
[2019-09-12] MEDS: ciprofloxacin 250mg tablet PO SCH ×2 (07:37→20:28)
[2019-09-12] MEDS: lactobacillus rhamnosus 10,000 MMU CELLS/CAPSULE PO SCH ×2 (07:37→20:28)
[2019-09-12] MEDS: linezolid 600mg tablet PO SCH ×2 (07:37→20:28)
[2019-09-12] MEDS: heparin, porcine 5000 units/ml vial SQ SCH ×2 (07:46→20:34)
[2019-09-12] MEDS: JUVEN Shake w/Arg/Glut/Ca2+Bmb (Juven 19.3gm) pkt 240ml PO SCH ×4 (07:47→19:50)
[2019-09-12 08:00] VITALS: BP 105/55
[2019-09-12 11:00] VITALS: BP 97/47
[2019-09-12 12:56] VITALS: BP 97/47
[2019-09-12] MEDS ORDERED: CIPR-230 PO (13:00)
[2019-09-12] MEDS ORDERED: LINE600T14 PO (13:00)
[2019-09-12] MEDS ORDERED: LACT1CAP26 PO (13:00)
--- NOTE | 2019-09-12 13:16 | NUR ---
WOUND INFECTION EDUCATION PROVIDED BY WOUND CARE 1. Patient instructed to call their primary doctor, or go the ED immediately if any of the following symptoms occur: * Increased pain in wound * Increase in drainage from the wound * Redness in the skin surrounding the wound * Warmth in the skin surrounding the wound * Bleeding from the wound * Temperature of 101 or greater 2. If any of these occur while in the hospital tell a nurse immediately. Addendum: 09/12/19 at 1316 by Nasreen Byrd RN Amended: Links added.
--- NOTE | 2019-09-12 14:45 | NUR ---
reassessment: Pt PO fluctuates but averaging 60% meals in total in addition to 50% Romero shake today meeting healing needs given low weight. LBM 09/09. Will continue to monitor for additional protein needs this admit. Recommendations: 1) Continue regular diet 2) Chocolate Romero protein shake BIDLD 3) Bowel care 4) Wt per rx Addendum: 09/12/19 at [address] Amended: Links added.
--- NOTE | 2019-09-12 18:35 | NUR ---
Problems reprioritized. Patient report given, questions answered & plan of care reviewed with Amelia HANSEN.
--- NOTE | 2019-09-12 18:40 | NUR ---
Patient in room [facility]. I have received report from JIM HANSEN and had the opportunity to ask questions and assume patient care.
[2019-09-12 20:00] VITALS: BP 106/52
[2019-09-13] VITALS: BP 114/56
[2019-09-13] MEDS: HYDROcodone/acetaminophen 5mg/325mg tablet PO PRN ×4 (04:13→20:28)
[2019-09-13 05:00] LABS: EOSINOPHILS # (AUTO) 0.2 X10'3 (0-0.9); MEAN CORPUSCULAR HEMOGLOBIN 31.3 PG (27.0-31.0); WHITE BLOOD COUNT 8.3 X10'3 (4.5-11.0)
[2019-09-13 05:03] LABS: BASOPHILS # (AUTO) 0.1 X10'3 (0-0.2); BASOPHILS % (AUTO) 1.2 % (0-1); EOSINOPHILS % (AUTO) 2.4 % (0-6); HEMATOCRIT 31.1 % (35.0-45.0); HEMOGLOBIN 10.7 g/dl (12.0-16.0); LYMPHOCYTES # (AUTO) 5.7 X10'3 (1.1-4.8); LYMPHOCYTES % (AUTO) 68.8 % (21-51); MEAN CORPUSCULAR HGB CONC 34.4 g/dL (33.0-36.5); MEAN CORPUSCULAR VOLUME 91.2 FL (78-98); MEAN PLATELET VOLUME 7.6 FL (7.4-10.4); MONOCYTES # (AUTO) 0.6 X10'3 (0-0.9); MONOCYTES % (AUTO) 7.1 % (2-12); NEUTROPHILS # (AUTO) 1.7 X10'3 (1.8-7.7); NEUTROPHILS % (AUTO) 20.5 % (42-75); PLATELET COUNT 371 X10'3 (140-440); RED BLOOD COUNT 3.41 X10'6 (4.20-5.60); RED CELL DISTRIBUTION WIDTH 14.7 % (11.5-14.5)
[2019-09-13 05:11] LABS: ALANINE AMINOTRANSFERASE 17 U/L (12-78); ALBUMIN 2.6 G/DL (3.4-5.0); ALBUMIN/GLOBULIN RATIO 0.8 (1.1-1.5); ALKALINE PHOSPHATASE 65 IU/L (46-116); ANION GAP 9 (8-16); ASPARTATE AMINO TRANSFERASE 19 U/L (10-37); BILIRUBIN,TOTAL 0.3 MG/DL (0.1-1.0); BLOOD UREA NITROGEN 17 MG/DL (7-18); BUN/CREATININE RATIO 29.8 (6.6-38.0); CALCIUM 8.4 MG/DL (8.5-10.1); CHLORIDE 107 MMOL/L (99-107); CREATININE 0.57 MG/DL (0.40-0.90); GLUCOSE 90 MG/DL (70-104); MAGNESIUM 1.8 MG/DL (1.5-2.4); PHOSPHORUS 3.7 MG/DL (2.3-4.5); POTASSIUM 3.7 MMOL/L (3.5-5.1); SODIUM 143 MMOL/L (135-145); TOTAL CARBON DIOXIDE 27.2 MMOL/L (24-32); TOTAL PROTEIN 5.8 G/DL (6.4-8.2); eGFR > 90 ML/MIN
--- NOTE | 2019-09-13 06:30 | NUR ---
Patient in room [facility]. I have received report from GRAHAM HANSEN and had the opportunity to ask questions and assume patient care.
--- NOTE | 2019-09-13 06:30 | NUR ---
Problems reprioritized. Patient report given, questions answered & plan of care reviewed with JIM RN.
--- NOTE | 2019-09-13 06:31 | NUR ---
Patient in room [facility]. I have received report from Amelia HANSEN and had the opportunity to ask questions and assume patient care.
[2019-09-13 06:32] LABS: PLATELET ESTIMATE NORMAL; SMUDGE CELLS 2+; TOTAL CELLS COUNTED 100
[2019-09-13 06:33] LABS: BURR CELLS FEW; ELLIPTOCYTES 1+; SCHISTOCYTES FEW
[2019-09-13 07:32] VITALS: BP 108/56
[2019-09-13] MEDS: linezolid 600mg tablet PO SCH ×2 (07:38→20:28)
[2019-09-13] MEDS: lactobacillus rhamnosus 10,000 MMU CELLS/CAPSULE PO SCH ×2 (07:39→20:29)
[2019-09-13] MEDS: ciprofloxacin 250mg tablet PO SCH ×2 (07:39→20:28)
[2019-09-13] MEDS: heparin, porcine 5000 units/ml vial SQ SCH ×2 (07:43→20:00)
[2019-09-13] MEDS: JUVEN Shake w/Arg/Glut/Ca2+Bmb (Juven 19.3gm) pkt 240ml PO SCH ×3 (08:00→18:35)
[2019-09-13 12:00] VITALS: BP 103/56
--- NOTE | 2019-09-13 15:42 | NUR ---
Patient had bowel movement, foam dressing on coccyx soiled, replaced and dated 09/13
--- NOTE | 2019-09-13 16:48 | NUR ---
Student documentation: I have reviewed all interventions, assessments performed and documented by Steph NUÑEZ
--- NOTE | 2019-09-13 16:49 | NUR ---
Student Medication Administration: , all medication were reviewed, dispensed, administered and documented per hospital policy by Steph CARTER.
[2019-09-13 17:16] VITALS: BP 98/46
[2019-09-13 18:00] VITALS: BP 94/52
--- NOTE | 2019-09-13 18:00 | NUR ---
Patient in room [facility]. I have received report from Brandt HANSEN and had the opportunity to ask questions and assume patient care.
--- NOTE | 2019-09-13 18:59 | NUR ---
Problems reprioritized. Patient report given, questions answered & plan of care reviewed with BA HANSEN.
[2019-09-14] VITALS: BP 116/60
[2019-09-14] MEDS: HYDROcodone/acetaminophen 5mg/325mg tablet PO PRN ×4 (00:30→18:58)
[2019-09-14 05:21] LABS: BASOPHILS # (AUTO) 0.1 X10'3 (0-0.2); BASOPHILS % (AUTO) 0.9 % (0-1); EOSINOPHILS # (AUTO) 0.2 X10'3 (0-0.9); HEMOGLOBIN 10.5 g/dl (12.0-16.0); LYMPHOCYTES # (AUTO) 4.6 X10'3 (1.1-4.8); MONOCYTES # (AUTO) 0.5 X10'3 (0-0.9); NEUTROPHILS # (AUTO) 2.2 X10'3 (1.8-7.7); WHITE BLOOD COUNT 7.6 X10'3 (4.5-11.0)
[2019-09-14 05:23] LABS: ALANINE AMINOTRANSFERASE 19 U/L (12-78); ALBUMIN 2.6 G/DL (3.4-5.0); ALBUMIN/GLOBULIN RATIO 0.8 (1.1-1.5); ALKALINE PHOSPHATASE 64 IU/L (46-116); ANION GAP 8 (8-16); ASPARTATE AMINO TRANSFERASE 17 U/L (10-37); BILIRUBIN,TOTAL 0.4 MG/DL (0.1-1.0); BLOOD UREA NITROGEN 20 MG/DL (7-18); BUN/CREATININE RATIO 36.4 (6.6-38.0); CALCIUM 8.3 MG/DL (8.5-10.1); CHLORIDE 106 MMOL/L (99-107); CREATININE 0.55 MG/DL (0.40-0.90); GLUCOSE 92 MG/DL (70-104); MAGNESIUM 1.8 MG/DL (1.5-2.4); PHOSPHORUS 3.4 MG/DL (2.3-4.5); POTASSIUM 3.8 MMOL/L (3.5-5.1); SODIUM 141 MMOL/L (135-145); TOTAL CARBON DIOXIDE 27.1 MMOL/L (24-32); eGFR > 90 ML/MIN
[2019-09-14 05:27] LABS: EOSINOPHILS % (AUTO) 2.4 % (0-6); HEMATOCRIT 30.6 % (35.0-45.0); LYMPHOCYTES % (AUTO) 60.7 % (21-51); MEAN CORPUSCULAR HEMOGLOBIN 31.5 PG (27.0-31.0); MEAN CORPUSCULAR HGB CONC 34.3 g/dL (33.0-36.5); MEAN CORPUSCULAR VOLUME 91.6 FL (78-98); MEAN PLATELET VOLUME 7.5 FL (7.4-10.4); MONOCYTES % (AUTO) 7.2 % (2-12); NEUTROPHILS % (AUTO) 28.8 % (42-75); PLATELET COUNT 352 X10'3 (140-440); RED BLOOD COUNT 3.34 X10'6 (4.20-5.60); RED CELL DISTRIBUTION WIDTH 14.8 % (11.5-14.5)
--- NOTE | 2019-09-14 06:11 | NUR ---
Patient in room [facility]. I have received report from TYRONE Whiting and had the opportunity to ask questions and assume patient care.
--- NOTE | 2019-09-14 06:12 | NUR ---
Problems reprioritized. Patient report given, questions answered & plan of care reviewed with Rosio HANSEN.
--- NOTE | 2019-09-14 06:38 | NUR ---
Patient in room [facility]. I have received report from TYRONE Esquivel and had the opportunity to ask questions and assume patient care.
[2019-09-14] MEDS: JUVEN Shake w/Arg/Glut/Ca2+Bmb (Juven 19.3gm) pkt 240ml PO SCH ×3 (08:00→18:34)
[2019-09-14] MEDS: ciprofloxacin 250mg tablet PO SCH ×2 (09:03→19:00)
[2019-09-14] MEDS: linezolid 600mg tablet PO SCH ×2 (09:03→19:00)
[2019-09-14] MEDS: lactobacillus rhamnosus 10,000 MMU CELLS/CAPSULE PO SCH ×2 (09:03→19:00)
[2019-09-14] MEDS: heparin, porcine 5000 units/ml vial SQ SCH ×2 (09:06→19:06)
[2019-09-14 11:00] VITALS: BP 105/54
--- NOTE | 2019-09-14 14:35 | NUR ---
Rt lower extremity dressing changed per orders. Lotion applied bilaterally lower extremities. Pt tolerated well.
[2019-09-14 18:00] VITALS: BP 105/58
--- NOTE | 2019-09-14 18:05 | NUR ---
Patient in room [facility]. I have received report from Rosio HANSEN and had the opportunity to ask questions and assume patient care.
--- NOTE | 2019-09-14 18:33 | NUR ---
Problems reprioritized. Patient report given, questions answered & plan of care reviewed with TYRONE Esquivel.
--- NOTE | 2019-09-14 18:37 | NUR ---
Student documentation: I have reviewed and agree with all interventions, assessments performed and documented by TYRONE Michael.
[2019-09-15] VITALS: BP 100/54
[2019-09-15 05:25] LABS: BASOPHILS # (AUTO) 0.1 X10'3 (0-0.2); BASOPHILS % (AUTO) 0.8 % (0-1); EOSINOPHILS # (AUTO) 0.2 X10'3 (0-0.9); HEMOGLOBIN 10.5 g/dl (12.0-16.0); LYMPHOCYTES # (AUTO) 4.2 X10'3 (1.1-4.8); MONOCYTES # (AUTO) 0.4 X10'3 (0-0.9); NEUTROPHILS # (AUTO) 2.3 X10'3 (1.8-7.7)
[2019-09-15 05:35] LABS: EOSINOPHILS % (AUTO) 2.3 % (0-6); HEMATOCRIT 31.1 % (35.0-45.0); LYMPHOCYTES % (AUTO) 58.8 % (21-51); MEAN CORPUSCULAR HEMOGLOBIN 31.2 PG (27.0-31.0); MEAN CORPUSCULAR HGB CONC 33.8 g/dL (33.0-36.5); MEAN CORPUSCULAR VOLUME 92.2 FL (78-98); MONOCYTES % (AUTO) 5.9 % (2-12); NEUTROPHILS % (AUTO) 32.2 % (42-75); PLATELET COUNT 334 X10'3 (140-440); RED BLOOD COUNT 3.37 X10'6 (4.20-5.60); RED CELL DISTRIBUTION WIDTH 14.9 % (11.5-14.5); WHITE BLOOD COUNT 7.1 X10'3 (4.5-11.0)
--- NOTE | 2019-09-15 06:13 | NUR ---
Patient in room [facility]. I have received report from TYRONE Esquivel and had the opportunity to ask questions and assume patient care. Patient currently sleeping in bed, bed locked and low, call light in reach, no acute distress, will continue to monitor.
[2019-09-15 06:16] LABS: ALANINE AMINOTRANSFERASE 18 U/L (12-78); ALBUMIN 2.7 G/DL (3.4-5.0); ALBUMIN/GLOBULIN RATIO 0.8 (1.1-1.5); ALKALINE PHOSPHATASE 64 IU/L (46-116); ANION GAP 8 (8-16); ASPARTATE AMINO TRANSFERASE 12 U/L (10-37); BILIRUBIN,TOTAL 0.4 MG/DL (0.1-1.0); BLOOD UREA NITROGEN 20 MG/DL (7-18); BUN/CREATININE RATIO 35.7 (6.6-38.0); CALCIUM 8.4 MG/DL (8.5-10.1); CHLORIDE 107 MMOL/L (99-107); CREATININE 0.56 MG/DL (0.40-0.90); GLUCOSE 97 MG/DL (70-104); MAGNESIUM 1.8 MG/DL (1.5-2.4); PHOSPHORUS 3.3 MG/DL (2.3-4.5); POTASSIUM 3.8 MMOL/L (3.5-5.1); SODIUM 141 MMOL/L (135-145); TOTAL CARBON DIOXIDE 26.2 MMOL/L (24-32); eGFR > 90 ML/MIN
--- NOTE | 2019-09-15 06:16 | NUR ---
Problems reprioritized. Patient report given, questions answered & plan of care reviewed with Ivelisse HANSEN.
[2019-09-15] MEDS: HYDROcodone/acetaminophen 5mg/325mg tablet PO PRN ×4 (07:34→22:33)
[2019-09-15] MEDS: lactobacillus rhamnosus 10,000 MMU CELLS/CAPSULE PO SCH ×2 (07:34→20:51)
[2019-09-15] MEDS: ciprofloxacin 250mg tablet PO SCH ×2 (07:34→20:51)
[2019-09-15] MEDS: linezolid 600mg tablet PO SCH ×2 (07:34→20:51)
[2019-09-15] MEDS: heparin, porcine 5000 units/ml vial SQ SCH ×2 (07:41→20:00)
[2019-09-15] MEDS: JUVEN Shake w/Arg/Glut/Ca2+Bmb (Juven 19.3gm) pkt 240ml PO SCH ×3 (07:42→18:00)
[2019-09-15 07:43] VITALS: BP 107/57
[2019-09-15 11:50] VITALS: BP 96/46
[2019-09-15 18:00] VITALS: BP 100/50
--- NOTE | 2019-09-15 18:05 | NUR ---
Patient in room [facility]. I have received report from Ivelisse HANSEN and had the opportunity to ask questions and assume patient care.
--- NOTE | 2019-09-15 18:29 | NUR ---
Problems reprioritized. Patient report given, questions answered & plan of care reviewed with TYRONE Esquivel.
[2019-09-16] VITALS: BP 113/53
[2019-09-16] MEDS: HYDROcodone/acetaminophen 5mg/325mg tablet PO PRN ×5 (03:14→23:57)
--- NOTE | 2019-09-16 06:32 | NUR ---
Problems reprioritized. Patient report given, questions answered & plan of care reviewed with Abena HANSEN.
--- NOTE | 2019-09-16 06:37 | NUR ---
Patient in room [facility]. I have received report from TYRONE Esquivel and had the opportunity to ask questions and assume patient care.
[2019-09-16 07:00] VITALS: BP 119/70
[2019-09-16] MEDS: heparin, porcine 5000 units/ml vial SQ SCH ×2 (08:00→19:50)
[2019-09-16] MEDS: JUVEN Shake w/Arg/Glut/Ca2+Bmb (Juven 19.3gm) pkt 240ml PO SCH ×3 (08:00→18:51)
[2019-09-16] MEDS: linezolid 600mg tablet PO SCH ×2 (09:19→19:46)
[2019-09-16] MEDS: lactobacillus rhamnosus 10,000 MMU CELLS/CAPSULE PO SCH ×2 (09:20→19:46)
[2019-09-16] MEDS: ciprofloxacin 250mg tablet PO SCH ×2 (09:21→19:47)
[2019-09-16 12:00] VITALS: BP 109/56
--- NOTE | 2019-09-16 15:15 | NUR ---
Patient refused wound dressing change
--- NOTE | 2019-09-16 15:20 | NUR ---
reassessment: Pt PO continues to fluctuate now 25-50% avg meals receiving Romero shakes BIDLD. Noted to have refused ONS w/ lunch yesterday but no other ONS PO documentation in EMR. LBM 09/15. No GI symptoms noted outside of baseline incontinence. Will continue to monitor. Recommendations: 1) Continue regular diet 2) Chocolate Romero protein shake BIDLD 3) Bowel care 4) Wt per rx Addendum: 09/16/19 at [address] Amended: Links added.
[2019-09-16 18:30] VITALS: BP 109/54
--- NOTE | 2019-09-16 18:58 | NUR ---
Problems reprioritized. Patient report given, questions answered & plan of care reviewed with Lili RN.
--- NOTE | 2019-09-16 19:30 | NUR ---
ate few bites of chicken only Addendum: 09/17/19 at 0109 by Alyssa Marte RN Amended: Links added.
[2019-09-17] VITALS: BP 107/59
--- NOTE | 2019-09-17 06:56 | NUR ---
Patient in room [facility]. I have received report from TYRONE Pearson and had the opportunity to ask questions and assume patient care.
[2019-09-17 07:25] VITALS: BP 112/51
[2019-09-17] MEDS: JUVEN Shake w/Arg/Glut/Ca2+Bmb (Juven 19.3gm) pkt 240ml PO SCH ×4 (08:00→20:05)
[2019-09-17] MEDS: heparin, porcine 5000 units/ml vial SQ SCH ×2 (08:00→19:54)
[2019-09-17] MEDS: HYDROcodone/acetaminophen 5mg/325mg tablet PO PRN ×3 (08:49→20:01)
[2019-09-17] MEDS: linezolid 600mg tablet PO SCH ×2 (09:51→20:01)
[2019-09-17] MEDS: lactobacillus rhamnosus 10,000 MMU CELLS/CAPSULE PO SCH ×2 (09:51→20:01)
[2019-09-17] MEDS: ciprofloxacin 250mg tablet PO SCH (09:51)
[2019-09-17 11:00] VITALS: BP 132/81
--- NOTE | 2019-09-17 12:05 | NUR ---
Problems reprioritized. Patient report given, questions answered & plan of care reviewed with
--- NOTE | 2019-09-17 18:39 | NUR ---
Problems reprioritized. Patient report given, questions answered & plan of care reviewed with TYRONE Magallanes.
[2019-09-17 20:00] VITALS: BP 107/51
--- NOTE | 2019-09-17 21:06 | NUR ---
Patient in room [facility]. I have received report from TYRONE Kraft and had the opportunity to ask questions and assume patient care. Addendum: 09/17/19 at 2108 by Sona Hood RN Amended: Links added.
[2019-09-18 00:27] VITALS: BP 94/52
--- NOTE | 2019-09-18 06:16 | NUR ---
Problems reprioritized. Patient report given, questions answered & plan of care reviewed with TYRONE Márquez. Addendum: 09/18/19 at 0616 by Sona Hodo RN Amended: Links added.
[2019-09-18] MEDS: heparin, porcine 5000 units/ml vial SQ SCH ×2 (08:00→20:00)
[2019-09-18] MEDS: lactobacillus rhamnosus 10,000 MMU CELLS/CAPSULE PO SCH ×2 (08:30→21:35)
[2019-09-18] MEDS: linezolid 600mg tablet PO SCH ×2 (08:30→21:35)
[2019-09-18] MEDS: HYDROcodone/acetaminophen 5mg/325mg tablet PO PRN ×4 (08:34→21:36)
[2019-09-18 09:21] VITALS: BP 112/58
[2019-09-18] MEDS ORDERED: loperamide 2mg capsule PO PRN (10:25)
[2019-09-18] MEDS: JUVEN Shake w/Arg/Glut/Ca2+Bmb (Juven 19.3gm) pkt 240ml PO SCH ×2 (13:25→18:05)
[2019-09-18 13:35] VITALS: BP 98/53
[2019-09-18 20:00] VITALS: BP 116/60
--- NOTE | 2019-09-18 23:22 | NUR ---
pt always states she is 08/30 pain but no s/s of distress noted. pt watching tv Addendum: 09/18/19 at 5414 by Sona Hood RN Amended: Links added.
[2019-09-19] VITALS: BP 112/57
[2019-09-19] MEDS: HYDROcodone/acetaminophen 5mg/325mg tablet PO PRN ×4 (01:32→19:20)
--- NOTE | 2019-09-19 06:00 | NUR ---
Patient in room [facility]. I have received report from EBONIE HANSEN and had the opportunity to ask questions and assume patient care.
--- NOTE | 2019-09-19 06:18 | NUR ---
Problems reprioritized. Patient report given, questions answered & plan of care reviewed with NORA MELENDEZ RN.
[2019-09-19 07:45] VITALS: BP 128/59
[2019-09-19] MEDS: heparin, porcine 5000 units/ml vial SQ SCH ×3 (07:52→19:31)
[2019-09-19] MEDS: JUVEN Shake w/Arg/Glut/Ca2+Bmb (Juven 19.3gm) pkt 240ml PO SCH ×3 (08:00→19:30)
[2019-09-19] MEDS: lactobacillus rhamnosus 10,000 MMU CELLS/CAPSULE PO SCH ×2 (08:04→19:20)
[2019-09-19] MEDS: linezolid 600mg tablet PO SCH ×2 (08:04→19:21)
[2019-09-19 12:17] VITALS: BP 92/50
--- NOTE | 2019-09-19 16:20 | NUR ---
Reassessment: Pt with fluctuating PO intake documented with average 25-50% however with 0% and refusal of some meals and documented to have been refusing most ONS. Pt seen at bedside states her appetite is low r/t decreased activity. Pt reports no food preferences at this time however states she dislikes sweet potatoes and yams, d/w dietary. Pt states she is drinking about 25% of the ONS and that she isn't drinking more of them because she doesn't like milkshakes a lot, however pt was not willing to try a Romero smoothie or a different flavor for the Romero shake. Encouraged pt to consume Romero shake and meals. Pt expressed understanding about the importance of protein intake. LBM 09/18. Per MD notes pt medically clear for d/c, awaiting safe placement. Will continue follow. Recommendations: 1) Continue regular diet 2) Chocolate Romero protein shake BIDLD 3) Encourage PO intake of meals and ONS 4) Bowel care 5) Wt per rx Addendum: 09/19/19 at [address] Amended: Links added.
--- NOTE | 2019-09-19 18:30 | NUR ---
Patient in room [facility]. I have received report from JAY HANSEN and had the opportunity to ask questions and assume patient care.
[2019-09-19 20:00] VITALS: BP 138/72
[2019-09-20] VITALS: BP 121/84
[2019-09-20] MEDS: HYDROcodone/acetaminophen 5mg/325mg tablet PO PRN ×3 (00:07→10:10)
--- NOTE | 2019-09-20 06:14 | NUR ---
Problems reprioritized. Patient report given, questions answered & plan of care reviewed with JAY HANSEN.
--- NOTE | 2019-09-20 06:18 | NUR ---
Patient in room [facility]. I have received report from NORA MELENDEZ RN and had the opportunity to ask questions and assume patient care.
[2019-09-20 07:31] VITALS: BP 99/54
[2019-09-20] MEDS: heparin, porcine 5000 units/ml vial SQ SCH ×2 (08:00→19:25)
[2019-09-20] MEDS: JUVEN Shake w/Arg/Glut/Ca2+Bmb (Juven 19.3gm) pkt 240ml PO SCH ×3 (08:00→14:48)
[2019-09-20] MEDS: lactobacillus rhamnosus 10,000 MMU CELLS/CAPSULE PO SCH ×2 (10:03→19:24)
[2019-09-20 15:11] VITALS: BP 95/48
[2019-09-20 15:28] VITALS: BP 99/50
[2019-09-20] MEDS: HYDROcodone/acetaminophen 10/325mg tab PO PRN ×2 (16:26→22:17)
[2019-09-20 18:00] VITALS: BP 96/57
--- NOTE | 2019-09-20 18:20 | NUR ---
report received from TYRONE Maloney
--- NOTE | 2019-09-20 18:20 | NUR ---
GAVE REPORT TO TAPAN HANSEN
[2019-09-20] MEDS ORDERED: temazepam 15mg capsule PO PRN (20:00)
[2019-09-21] VITALS: BP 131/59
[2019-09-21] MEDS: HYDROcodone/acetaminophen 10/325mg tab PO PRN ×4 (03:41→18:56)
--- NOTE | 2019-09-21 06:00 | NUR ---
Patient in room [facility]. I have received report from Henok HANSEN and had the opportunity to ask questions and assume patient care.
--- NOTE | 2019-09-21 06:17 | NUR ---
report given to TYRONE Arellano
[2019-09-21] MEDS: JUVEN Shake w/Arg/Glut/Ca2+Bmb (Juven 19.3gm) pkt 240ml PO SCH ×3 (07:55→18:00)
[2019-09-21 08:00] VITALS: BP 94/53
[2019-09-21] MEDS: heparin, porcine 5000 units/ml vial SQ SCH ×2 (08:00→20:00)
[2019-09-21] MEDS: lactobacillus rhamnosus 10,000 MMU CELLS/CAPSULE PO SCH ×2 (08:19→20:00)
--- NOTE | 2019-09-21 11:31 | NUR ---
Reassessment: Pt with more steady trend with average 25% PO intake of meals however noted with 50-75% PO intake of a couple recent meals. Pt documented with 100% PO intake of ONS yesterday at breakfast and 25% PO intake of ONS at lunch, pending further documentation of PO intake for today. LBM 09/21. Pt continues awaiting placement. Will continue to follow closely. Recommendations: 1) Continue regular diet 2) Chocolate Romero protein shake BIDLD 3) Encourage PO intake of meals and ONS 4) Bowel care 5) Wt per rx Addendum: 09/21/19 at [address] Amended: Links added.
[2019-09-21 17:55] VITALS: BP 100/51
[2019-09-21 18:00] VITALS: BP 134/78
--- NOTE | 2019-09-21 18:20 | NUR ---
Problems reprioritized. Patient report given, questions answered & plan of care reviewed with Henok HANSEN.
[2019-09-22] VITALS: BP 90/45
[2019-09-22] MEDS: HYDROcodone/acetaminophen 10/325mg tab PO PRN ×5 (00:44→22:50)
--- NOTE | 2019-09-22 06:34 | NUR ---
Patient in room [facility]. I have received report from TYRONE Whiting and had the opportunity to ask questions and assume patient care.
--- NOTE | 2019-09-22 06:34 | NUR ---
report given to TYRONE Alejandra
[2019-09-22 06:52] VITALS: BP 99/53
[2019-09-22] MEDS: lactobacillus rhamnosus 10,000 MMU CELLS/CAPSULE PO SCH ×2 (08:55→19:51)
[2019-09-22] MEDS: JUVEN Shake w/Arg/Glut/Ca2+Bmb (Juven 19.3gm) pkt 240ml PO SCH ×3 (08:55→18:00)
[2019-09-22] MEDS: heparin, porcine 5000 units/ml vial SQ SCH ×2 (08:56→19:43)
[2019-09-22 11:40] VITALS: BP 105/55
--- NOTE | 2019-09-22 18:08 | NUR ---
Problems reprioritized. Patient report given, questions answered & plan of care reviewed with TYRONE Whiting.
--- NOTE | 2019-09-22 18:30 | NUR ---
Report received from Justyn RN
[2019-09-22 20:21] VITALS: BP 111/44
--- NOTE | 2019-09-22 23:13 | NUR ---
report given to TYRONE Sanders
[2019-09-23] VITALS: BP 109/55
[2019-09-23] MEDS: HYDROcodone/acetaminophen 10/325mg tab PO PRN ×5 (02:03→20:14)
--- NOTE | 2019-09-23 02:34 | NUR ---
Patient asked for norco for pain. I gave the q4h PRN norco 4hours after the last dose at 2250, but because of daylight savings the emar says I gave it too early.
--- NOTE | 2019-09-23 06:30 | NUR ---
Patient in room [facility]. I have received report from Mariyln HANSEN and had the opportunity to ask questions and assume patient care.
--- NOTE | 2019-09-23 06:32 | NUR ---
Problems reprioritized. Patient report given, questions answered & plan of care reviewed with Yulisa HANSEN.
[2019-09-23 07:24] VITALS: BP 101/54
[2019-09-23] MEDS: lactobacillus rhamnosus 10,000 MMU CELLS/CAPSULE PO SCH ×2 (07:52→20:13)
[2019-09-23] MEDS: JUVEN Shake w/Arg/Glut/Ca2+Bmb (Juven 19.3gm) pkt 240ml PO SCH ×3 (07:54→18:33)
[2019-09-23] MEDS: heparin, porcine 5000 units/ml vial SQ SCH ×2 (07:54→20:00)
--- NOTE | 2019-09-23 12:00 | NUR ---
Patient refusing dressing change, pictures unable to obtain today.
[2019-09-23 16:36] VITALS: BP 102/49
[2019-09-23 18:00] VITALS: BP 92/51
[2019-09-24] VITALS: BP 95/47
[2019-09-24] MEDS: HYDROcodone/acetaminophen 10/325mg tab PO PRN ×5 (00:22→19:57)
--- NOTE | 2019-09-24 06:32 | NUR ---
Problems reprioritized. Patient report given, questions answered & plan of care reviewed with Neelam Walker, Darren.
--- NOTE | 2019-09-24 06:51 | NUR ---
Patient in room [facility]. I have received report from Sun Orta RN and had the opportunity to ask questions and assume patient care.
--- NOTE | 2019-09-24 06:57 | NUR ---
Patient in room [facility]. I have received report from leyda yin and had the opportunity to ask questions and assume patient care.
--- NOTE | 2019-09-24 07:41 | NUR ---
Patient in room [facility]. I have received report from j carlos HANSEN and had the opportunity to ask questions and assume patient care.
[2019-09-24 08:00] VITALS: BP 104/52
[2019-09-24] MEDS: JUVEN Shake w/Arg/Glut/Ca2+Bmb (Juven 19.3gm) pkt 240ml PO SCH ×3 (08:00→18:01)
[2019-09-24] MEDS: heparin, porcine 5000 units/ml vial SQ SCH ×2 (08:00→20:00)
[2019-09-24] MEDS: lactobacillus rhamnosus 10,000 MMU CELLS/CAPSULE PO SCH ×2 (08:16→19:58)
--- NOTE | 2019-09-24 09:34 | NUR ---
patient colostomy bag changed as leaking around the site.
[2019-09-24 12:00] VITALS: BP 93/48
--- NOTE | 2019-09-24 12:33 | NUR ---
Patient in room [facility]. I have received report from Neelam HANSEN and had the opportunity to ask questions and assume patient care.
--- NOTE | 2019-09-24 12:33 | NUR ---
Patient in room [facility]. I have received report from Neelam HANSEN and had the opportunity to ask questions and assume patient care.
--- NOTE | 2019-09-24 15:21 | NUR ---
with supervision of clinical nursing instructor and verification of wound care orders, changed right lower extremity dressing, currently clean dry and intacked, continue to monitor.
--- NOTE | 2019-09-24 15:52 | NUR ---
reassessment: Pt PO returned to 25-50% meals but now refusing ONS as well as wound care per RN note on 09/23. Did receive wound care today. LBM 09/23. Stable for d/c once placement found per MD note. Will continue to monitor. Recommendations: 1) Continue regular diet 2) Chocolate Romero protein shake BIDLD 3) Encourage PO intake of meals and ONS 4) Bowel care 5) Wt per rx Addendum: 09/24/19 at [address] Amended: Links added.
--- NOTE | 2019-09-24 17:39 | NUR ---
reviewed student nurse charting
--- NOTE | 2019-09-24 17:52 | NUR ---
Problems reprioritized. Patient report given, questions answered & plan of care reviewed with AMRIT HANSEN.
--- NOTE | 2019-09-24 17:53 | NUR ---
Problems reprioritized. Patient report given, questions answered & plan of care reviewed with Neelam HANSEN.
--- NOTE | 2019-09-24 18:21 | NUR ---
Problems reprioritized. Patient report given, questions answered & plan of care reviewed with Amelia HANSEN.
--- NOTE | 2019-09-24 18:30 | NUR ---
Patient in room [facility]. I have received report from AMRIT HANSEN AND URSZULA RN and had the opportunity to ask questions and assume patient care.
[2019-09-24 20:00] VITALS: BP 100/40
[2019-09-25] VITALS: BP 116/56
[2019-09-25] MEDS: HYDROcodone/acetaminophen 10/325mg tab PO PRN ×6 (00:09→23:50)
--- NOTE | 2019-09-25 06:30 | NUR ---
Problems reprioritized. Patient report given, questions answered & plan of care reviewed with LARISA HANSEN.
--- NOTE | 2019-09-25 07:00 | NUR ---
Patient in room [facility]. I have received report from Amelia HANSEN and had the opportunity to ask questions and assume patient care.
[2019-09-25 07:02] VITALS: BP 98/51
[2019-09-25] MEDS: JUVEN Shake w/Arg/Glut/Ca2+Bmb (Juven 19.3gm) pkt 240ml PO SCH ×3 (07:44→18:00)
[2019-09-25] MEDS: lactobacillus rhamnosus 10,000 MMU CELLS/CAPSULE PO SCH ×2 (07:45→19:26)
[2019-09-25] MEDS: heparin, porcine 5000 units/ml vial SQ SCH ×2 (07:45→19:26)
[2019-09-25 11:39] VITALS: BP 103/53
--- NOTE | 2019-09-25 18:29 | NUR ---
Problems reprioritized. Patient report given, questions answered & plan of care reviewed with Amelia HANSEN.
--- NOTE | 2019-09-25 18:30 | NUR ---
Patient in room [facility]. I have received report from LARISA HANSEN and had the opportunity to ask questions and assume patient care.
[2019-09-25 20:00] VITALS: BP 114/56
[2019-09-26] VITALS: BP 105/50
[2019-09-26] MEDS: HYDROcodone/acetaminophen 10/325mg tab PO PRN ×5 (05:10→21:49)
--- NOTE | 2019-09-26 06:25 | NUR ---
Patient in room [facility]. I have received report from Velvet Verdin RN and had the opportunity to ask questions and assume patient care.
--- NOTE | 2019-09-26 06:30 | NUR ---
Problems reprioritized. Patient report given, questions answered & plan of care reviewed with DIANA RN.
[2019-09-26 07:15] VITALS: BP 91/62
[2019-09-26] MEDS: heparin, porcine 5000 units/ml vial SQ SCH ×2 (08:00→19:36)
[2019-09-26] MEDS: JUVEN Shake w/Arg/Glut/Ca2+Bmb (Juven 19.3gm) pkt 240ml PO SCH ×3 (08:00→19:36)
[2019-09-26] MEDS: lactobacillus rhamnosus 10,000 MMU CELLS/CAPSULE PO SCH ×2 (08:55→19:35)
[2019-09-26 11:30] VITALS: BP 92/50
--- NOTE | 2019-09-26 18:20 | NUR ---
Patient in room [facility]. I have received report from TYRONE Ruff and had the opportunity to ask questions and assume patient care. Addendum: 09/26/19 at 1820 by Adela Jewell RN Amended: Links added.
--- NOTE | 2019-09-26 18:22 | NUR ---
Problems reprioritized. Patient report given, questions answered & plan of care reviewed with Sun Koo RN.
[2019-09-26 19:00] VITALS: BP 98/49
[2019-09-27] VITALS: BP 106/54
[2019-09-27] MEDS: HYDROcodone/acetaminophen 10/325mg tab PO PRN ×5 (03:11→21:06)
--- NOTE | 2019-09-27 06:33 | NUR ---
Problems reprioritized. Patient report given, questions answered & plan of care reviewed with TYRONE Ruff.
--- NOTE | 2019-09-27 06:34 | NUR ---
Patient in room [facility]. I have received report from Sun Koo RN and had the opportunity to ask questions and assume patient care.
[2019-09-27 08:00] VITALS: BP 117/53
[2019-09-27] MEDS: heparin, porcine 5000 units/ml vial SQ SCH ×2 (08:00→20:00)
[2019-09-27] MEDS: JUVEN Shake w/Arg/Glut/Ca2+Bmb (Juven 19.3gm) pkt 240ml PO SCH ×3 (08:00→18:00)
[2019-09-27] MEDS: lactobacillus rhamnosus 10,000 MMU CELLS/CAPSULE PO SCH ×2 (08:07→21:05)
[2019-09-27 11:30] VITALS: BP 106/63
--- NOTE | 2019-09-27 15:18 | NUR ---
Reassessment: Pt continues with fluctuating PO intake, previously up to overall 50% PO intake with 100% PO intake at lunch 09/25, however has declined and is now stable averaging 25% PO intake and refusing ONS per med list not meeting nutrient needs. Pt has been seen by RD multiple times and denies any food preferences or nutrient interventions. Pt states she is satisfied with meals. Pt has RD contact information and has been encouraged to reach out if she has any requests. LBM 09/24, documented with small BMs for several days, d/w dietary to send prunes at next meal. Pt continues awaiting placement. Will continue to follow closely. Recommendations: 1) Continue regular diet 2) Chocolate Romero protein shake BIDLD 3) Encourage PO intake of meals and ONS 4) Bowel care 5) Wt per rx Addendum: 09/27/19 at [address] Amended: Links added.
--- NOTE | 2019-09-27 18:29 | NUR ---
Problems reprioritized. Patient report given, questions answered & plan of care reviewed with Sun Koo RN.
[2019-09-27 19:00] VITALS: BP 124/84
--- NOTE | 2019-09-27 19:14 | NUR ---
Patient in room [facility]. I have received report from TYRONE Ruff and had the opportunity to ask questions and assume patient care. Addendum: 09/27/19 at 1914 by Adela Jewell RN Amended: Links added.
[2019-09-28] VITALS: BP 101/54
[2019-09-28] MEDS: HYDROcodone/acetaminophen 10/325mg tab PO PRN ×5 (01:08→21:10)
--- NOTE | 2019-09-28 06:10 | NUR ---
Problems reprioritized. Patient report given, questions answered & plan of care reviewed with TYRONE Kraft. Addendum: 09/28/19 at 0611 by Adela Jewell RN Amended: Links added.
--- NOTE | 2019-09-28 06:26 | NUR ---
Patient in room [facility]. I have received report from TYRONE Garsia and had the opportunity to ask questions and assume patient care.
[2019-09-28 07:00] VITALS: BP 101/56
[2019-09-28] MEDS: lactobacillus rhamnosus 10,000 MMU CELLS/CAPSULE PO SCH ×2 (07:58→21:10)
[2019-09-28] MEDS: JUVEN Shake w/Arg/Glut/Ca2+Bmb (Juven 19.3gm) pkt 240ml PO SCH (08:00)
[2019-09-28] MEDS: heparin, porcine 5000 units/ml vial SQ SCH ×2 (08:00→20:00)
[2019-09-28 11:00] VITALS: BP 130/60
[2019-09-28 18:00] VITALS: BP 96/57
--- NOTE | 2019-09-28 18:05 | NUR ---
Patient in room [facility]. I have received report from TYRONE Kraft and had the opportunity to ask questions and assume patient care. Addendum: 09/28/19 at 1806 by Adela Jewell RN Amended: Links added.
--- NOTE | 2019-09-28 18:10 | NUR ---
Problems reprioritized. Patient report given, questions answered & plan of care reviewed with TYRONE IRAHETA.
[2019-09-29] VITALS: BP 94/53
[2019-09-29] MEDS: HYDROcodone/acetaminophen 10/325mg tab PO PRN ×6 (01:19→22:36)
--- NOTE | 2019-09-29 06:34 | NUR ---
Problems reprioritized. Patient report given, questions answered & plan of care reviewed with TYRONE Wong. Addendum: 09/29/19 at 0634 by Adela Jewell RN Amended: Links added.
--- NOTE | 2019-09-29 06:50 | NUR ---
Patient in room [facility]. I have received report from Sun Koo RN and had the opportunity to ask questions and assume patient care.
[2019-09-29 07:00] VITALS: BP 98/52
[2019-09-29] MEDS: heparin, porcine 5000 units/ml vial SQ SCH ×2 (08:00→20:00)
[2019-09-29] MEDS: lactobacillus rhamnosus 10,000 MMU CELLS/CAPSULE PO SCH ×2 (08:23→20:00)
[2019-09-29 11:00] VITALS: BP 104/57
[2019-09-29 18:00] VITALS: BP 111/53
--- NOTE | 2019-09-29 18:36 | NUR ---
Problems reprioritized. Patient report given, questions answered & plan of care reviewed with Chantel HANSEN.
--- NOTE | 2019-09-29 18:40 | NUR ---
Patient in room [facility]. I have received report from TYRONE Wong and had the opportunity to ask questions and assume patient care.
[2019-09-30] VITALS: BP 111/53
[2019-09-30] MEDS: HYDROcodone/acetaminophen 10/325mg tab PO PRN ×6 (02:36→23:24)
--- NOTE | 2019-09-30 06:36 | NUR ---
Patient in room [facility]. I have received report from Chantel HANSEN and had the opportunity to ask questions and assume patient care.
--- NOTE | 2019-09-30 06:49 | NUR ---
Problems reprioritized. Patient report given, questions answered & plan of care reviewed with TYORNE Wong.
[2019-09-30 07:00] VITALS: BP 146/55
[2019-09-30] MEDS: heparin, porcine 5000 units/ml vial SQ SCH ×2 (08:00→19:38)
[2019-09-30] MEDS: lactobacillus rhamnosus 10,000 MMU CELLS/CAPSULE PO SCH ×2 (08:47→19:24)
[2019-09-30 11:00] VITALS: BP 116/70
--- NOTE | 2019-09-30 12:08 | NUR ---
Reassessment: Pt with improvement in PO intake, now averaging 50-75% closer to meeting nutrient needs given low weight and geriatric age. ONS d/c'ed 09/28, likely d/t frequent refusals. Per WO notes venous ulcer dry and intact. LBM 09/29. Pt continues awaiting placement. Will continue to follow. Recommendations: 1) Continue regular diet 2) Encourage PO intake 3) Bowel care 4) Wt per rx Addendum: 09/30/19 at [address] Amended: Links added.
--- NOTE | 2019-09-30 14:16 | NUR ---
Patient refused IV reinsertion, she claimed that her peripheral IV was just inserted 2 days ago. Record said that her current peripheral IV catheter was inserted 09/24/19 Addendum: 09/30/19 at 1418 by Judith Quintana RN IV site dressing has no date of insertion written
--- NOTE | 2019-09-30 18:52 | NUR ---
Patient in room [facility]. I have received report from TYRONE Wong and had the opportunity to ask questions and assume patient care.
--- NOTE | 2019-09-30 18:53 | NUR ---
Problems reprioritized. Patient report given, questions answered & plan of care reviewed with Chantel HANSEN.
[2019-09-30 22:19] VITALS: BP 105/51
[2019-10-01] MEDS: HYDROcodone/acetaminophen 10/325mg tab PO PRN ×5 (03:24→19:27)
--- NOTE | 2019-10-01 06:37 | NUR ---
Problems reprioritized. Patient report given, questions answered & plan of care reviewed with TRYONE Qureshi.
[2019-10-01] MEDS: lactobacillus rhamnosus 10,000 MMU CELLS/CAPSULE PO SCH ×2 (07:30→19:27)
[2019-10-01 08:05] VITALS: BP 107/57
--- NOTE | 2019-10-01 10:42 | NUR ---
Spoke to MD regarding the necessary q3day labs needed for heparin administration. Labs ordered. Also discussed red vaginal skin irritation. No new orders at this time.
[2019-10-01 11:45] LABS: HEMATOCRIT 31.9 % (35.0-45.0); RED BLOOD COUNT 3.47 X10'6 (4.20-5.60)
[2019-10-01 11:46] LABS: HEMOGLOBIN 10.8 g/dl (12.0-16.0); MEAN CORPUSCULAR HEMOGLOBIN 31.1 PG (27.0-31.0); MEAN CORPUSCULAR HGB CONC 33.9 g/dL (33.0-36.5); MEAN CORPUSCULAR VOLUME 91.8 FL (78-98); PLATELET COUNT 646 X10'3 (140-440); RED CELL DISTRIBUTION WIDTH 15.5 % (11.5-14.5)
[2019-10-01] MEDS: heparin, porcine 5000 units/ml vial SQ SCH ×3 (12:33→19:42)
[2019-10-01 12:54] VITALS: BP 110/56
--- NOTE | 2019-10-01 18:49 | NUR ---
Patient in room [facility]. I have received report from TYRONE Qureshi and had the opportunity to ask questions and assume patient care.
--- NOTE | 2019-10-01 18:55 | NUR ---
Problems reprioritized. Patient report given, questions answered & plan of care reviewed with MYRTLE Chahal RN.
[2019-10-01] MEDS: miconazole nitrate 2% 45gm VAG cream VG SCH (19:28)
[2019-10-01] MEDS: emollient combination-Eucerin 250 ML LOTION TP SCH ×2 (19:28→19:42)
--- NOTE | 2019-10-01 19:43 | NUR ---
Patient refused heparin and eucerin cream. States lotion was applied recently. Explained this was a medication lotion for very dry skin from our pharmacy. States she does not want the cream until morning. Heparin refused as she states she does not like the shot and she will only accept once during the day.
[2019-10-01 19:49] VITALS: BP 96/49
[2019-10-02] VITALS: BP 106/46
[2019-10-02] MEDS: HYDROcodone/acetaminophen 10/325mg tab PO PRN ×5 (00:04→20:58)
--- NOTE | 2019-10-02 06:07 | NUR ---
Problems reprioritized. Patient report given, questions answered & plan of care reviewed with Jose RN.
--- NOTE | 2019-10-02 07:12 | NUR ---
Patient in room [facility]. I have received report from Sun Orta RN and had the opportunity to ask questions and assume patient care.
[2019-10-02] MEDS ORDERED: hydrALAZINE 20mg/ml inj. IV PRN (07:20)
[2019-10-02 07:30] VITALS: BP 114/60
[2019-10-02] MEDS: lactobacillus rhamnosus 10,000 MMU CELLS/CAPSULE PO SCH ×2 (08:43→20:58)
[2019-10-02] MEDS: heparin, porcine 5000 units/ml vial SQ SCH ×2 (08:44→20:00)
[2019-10-02] MEDS: emollient combination-Eucerin 250 ML LOTION TP SCH ×2 (10:36→21:00)
[2019-10-02 11:45] VITALS: BP 87/46
[2019-10-02 12:30] VITALS: BP 103/50
--- NOTE | 2019-10-02 15:19 | NUR ---
Problems reprioritized. Patient report given, questions answered & plan of care reviewed with TYRONE Carlton.
--- NOTE | 2019-10-02 15:23 | NUR ---
Patient in room [facility]. I have received report from Justyn HANSEN and had the opportunity to ask questions and assume patient care.
--- NOTE | 2019-10-02 18:09 | NUR ---
Problems reprioritized. Patient report given, questions answered & plan of care reviewed with MYRTLE Koo Addendum: 10/02/19 at 1813 by Ferdinand Shearer RN REVIEWED WITH MYRTLE Chahal
[2019-10-02 20:00] VITALS: BP 101/54
[2019-10-02] MEDS: miconazole nitrate 2% 45gm VAG cream VG SCH (20:59)
[2019-10-02 23:57] VITALS: BP 106/53
[2019-10-03] MEDS: HYDROcodone/acetaminophen 10/325mg tab PO PRN ×5 (01:05→20:52)
--- NOTE | 2019-10-03 06:42 | NUR ---
Problems reprioritized. Patient report given, questions answered & plan of care reviewed with TYRONE Nye.
[2019-10-03 07:00] VITALS: BP 93/54
[2019-10-03] MEDS: lactobacillus rhamnosus 10,000 MMU CELLS/CAPSULE PO SCH ×2 (07:00→19:42)
[2019-10-03] MEDS: emollient combination-Eucerin 250 ML LOTION TP SCH ×2 (07:01→19:54)
[2019-10-03] MEDS: heparin, porcine 5000 units/ml vial SQ SCH ×2 (07:02→19:45)
[2019-10-03 11:00] VITALS: BP 98/49
--- NOTE | 2019-10-03 18:59 | NUR ---
Problems reprioritized. Patient report given, questions answered & plan of care reviewed with Velvet Verdin RN.
--- NOTE | 2019-10-03 19:00 | NUR ---
Patient in room [facility]. I have received report from TYLOR HANSEN and had the opportunity to ask questions and assume patient care.
[2019-10-03] MEDS: miconazole nitrate 2% 45gm VAG cream VG SCH (19:42)
[2019-10-03 20:00] VITALS: BP 91/47
[2019-10-04] VITALS: BP 97/52
[2019-10-04] MEDS: HYDROcodone/acetaminophen 10/325mg tab PO PRN ×6 (01:05→21:59)
--- NOTE | 2019-10-04 06:30 | NUR ---
Problems reprioritized. Patient report given, questions answered & plan of care reviewed with DARBY HANSEN.
[2019-10-04 07:19] VITALS: BP 91/47
[2019-10-04] MEDS: heparin, porcine 5000 units/ml vial SQ SCH ×2 (09:47→19:32)
[2019-10-04] MEDS: lactobacillus rhamnosus 10,000 MMU CELLS/CAPSULE PO SCH ×2 (09:47→19:31)
[2019-10-04] MEDS: emollient combination-Eucerin 250 ML LOTION TP SCH ×2 (09:48→19:31)
--- NOTE | 2019-10-04 10:34 | NUR ---
Reassessment: Pt continues with more consistent average PO intake of 50-75% likely closely meeting nutrient needs. Pt working with janiya cano for food preferences. [facility] 10/02. Pt continues awaiting placement. Will continue to follow. Recommendations: 1) Continue regular diet 2) Encourage PO intake 3) Bowel care 4) Wt per rx Addendum: 10/04/19 at [address] Amended: Links added.
[2019-10-04 11:00] VITALS: BP 102/48
--- NOTE | 2019-10-04 18:27 | NUR ---
Problems reprioritized. Patient report given, questions answered & plan of care reviewed with NORA MELENDEZ RN.
--- NOTE | 2019-10-04 18:30 | NUR ---
Patient in room [facility]. I have received report from DARBY HANSEN and had the opportunity to ask questions and assume patient care.
[2019-10-04] MEDS: miconazole nitrate 2% 45gm VAG cream VG SCH (19:31)
[2019-10-04 20:00] VITALS: BP 116/55
[2019-10-05] VITALS: BP 99/47
[2019-10-05] MEDS: HYDROcodone/acetaminophen 10/325mg tab PO PRN ×5 (04:06→22:12)
--- NOTE | 2019-10-05 06:12 | NUR ---
Problems reprioritized. Patient report given, questions answered & plan of care reviewed with DARBY HANSEN.
--- NOTE | 2019-10-05 06:21 | NUR ---
Patient in room [facility]. I have received report from Velvet Verdin RN and had the opportunity to ask questions and assume patient care.
[2019-10-05 07:08] VITALS: BP 93/47
[2019-10-05] MEDS: lactobacillus rhamnosus 10,000 MMU CELLS/CAPSULE PO SCH ×2 (08:53→21:28)
[2019-10-05] MEDS: heparin, porcine 5000 units/ml vial SQ SCH ×2 (08:53→21:41)
[2019-10-05] MEDS: emollient combination-Eucerin 250 ML LOTION TP SCH ×2 (08:56→21:30)
[2019-10-05 11:00] VITALS: BP 95/48
--- NOTE | 2019-10-05 18:30 | NUR ---
Patient in room [facility]. I have received report from BALDO HANSEN and had the opportunity to ask questions and assume patient care.
[2019-10-05 20:00] VITALS: BP 115/64
[2019-10-05] MEDS: miconazole nitrate 2% 45gm VAG cream VG SCH (21:32)
[2019-10-06] VITALS: BP 115/56
[2019-10-06] MEDS: HYDROcodone/acetaminophen 10/325mg tab PO PRN ×5 (02:58→20:04)
--- NOTE | 2019-10-06 06:25 | NUR ---
Problems reprioritized. Patient report given, questions answered & plan of care reviewed with DOUGIE HANSEN.
[2019-10-06] MEDS: lactobacillus rhamnosus 10,000 MMU CELLS/CAPSULE PO SCH ×2 (07:46→20:03)
[2019-10-06] MEDS: emollient combination-Eucerin 250 ML LOTION TP SCH ×2 (07:47→20:05)
[2019-10-06] MEDS: heparin, porcine 5000 units/ml vial SQ SCH ×2 (08:00→20:00)
[2019-10-06 08:15] VITALS: BP 99/52
[2019-10-06 11:58] VITALS: BP 113/60
--- NOTE | 2019-10-06 14:42 | NUR ---
dressing changed per MD orders. patient tolerated well.
[2019-10-06 18:00] VITALS: BP 90/55
--- NOTE | 2019-10-06 18:23 | NUR ---
report received from TYRONE Berger
--- NOTE | 2019-10-06 18:25 | NUR ---
Problems reprioritized. Patient report given, questions answered & plan of care reviewed with TYRONE Whiting.
[2019-10-07] VITALS: BP 105/57
[2019-10-07] MEDS: HYDROcodone/acetaminophen 10/325mg tab PO PRN ×6 (00:29→22:10)
[2019-10-07 05:40] LABS: BASOPHILS # (AUTO) 0.1 X10'3 (0-0.2)
[2019-10-07 05:42] LABS: BASOPHILS % (AUTO) 1.1 % (0-1); EOSINOPHILS # (AUTO) 0.2 X10'3 (0-0.9); EOSINOPHILS % (AUTO) 2.6 % (0-6); HEMATOCRIT 33.9 % (35.0-45.0); HEMOGLOBIN 11.3 g/dl (12.0-16.0); LYMPHOCYTES # (AUTO) 5.7 X10'3 (1.1-4.8); LYMPHOCYTES % (AUTO) 59.6 % (21-51); MEAN CORPUSCULAR HGB CONC 33.5 g/dL (33.0-36.5); MEAN CORPUSCULAR VOLUME 92.7 FL (78-98); MEAN PLATELET VOLUME 8.1 FL (7.4-10.4); MONOCYTES # (AUTO) 0.8 X10'3 (0-0.9); NEUTROPHILS # (AUTO) 2.8 X10'3 (1.8-7.7); NEUTROPHILS % (AUTO) 28.7 % (42-75); PLATELET COUNT 615 X10'3 (140-440); RED BLOOD COUNT 3.65 X10'6 (4.20-5.60); RED CELL DISTRIBUTION WIDTH 15.9 % (11.5-14.5); WHITE BLOOD COUNT 9.6 X10'3 (4.5-11.0)
[2019-10-07 06:08] LABS: ANION GAP 5 (8-16); BLOOD UREA NITROGEN 21 MG/DL (7-18); BUN/CREATININE RATIO 40.4 (6.6-38.0); CALCIUM 8.6 MG/DL (8.5-10.1); CHLORIDE 107 MMOL/L (99-107); CREATININE 0.52 MG/DL (0.40-0.90); GLUCOSE 82 MG/DL (70-104); SODIUM 140 MMOL/L (135-145); TOTAL CARBON DIOXIDE 27.6 MMOL/L (24-32); eGFR > 90 ML/MIN
--- NOTE | 2019-10-07 06:26 | NUR ---
report given to TYRONE Berger
[2019-10-07 08:00] VITALS: BP 95/47
[2019-10-07] MEDS: heparin, porcine 5000 units/ml vial SQ SCH ×2 (08:00→20:19)
[2019-10-07] MEDS: lactobacillus rhamnosus 10,000 MMU CELLS/CAPSULE PO SCH ×2 (08:37→20:16)
[2019-10-07] MEDS: emollient combination-Eucerin 250 ML LOTION TP SCH ×2 (08:41→20:22)
[2019-10-07 11:00] VITALS: BP 102/55
--- NOTE | 2019-10-07 12:28 | NUR ---
reassessment: Pt PO steady 50-75% avg meals w/ 75-100% avg regular diet this AM meeting needs given IBW. LBM 10/04. Pt medically cleared for d/c pending placement per MD note. Will continue to monitor. Recommendations: 1) Continue regular diet 2) Encourage PO intake 3) Bowel care 4) Wt per rx Addendum: 10/07/19 at [address] Amended: Links added.
--- NOTE | 2019-10-07 18:27 | NUR ---
Problems reprioritized. Patient report given, questions answered & plan of care reviewed with TYRONE WONG.
--- NOTE | 2019-10-07 18:29 | NUR ---
Patient in room [facility]. I have received report from Celine Rizo and had the opportunity to ask questions and assume patient care. Addendum: 10/07/19 at 1829 by Aleisha Robles RN Amended: Links added.
[2019-10-07 20:00] VITALS: BP 118/61
--- NOTE | 2019-10-07 20:00 | NUR ---
pt resting eyes closed without s&s of distress at this time.
[2019-10-07] MEDS: magnesium hydroxide 30ml (MOM) UD suspension PO PRN (20:19)
--- NOTE | 2019-10-07 22:05 | NUR ---
pt given norco for pain had said she wanted a sleeper than after bringing the pill in and seeing it pt decided to change her mind.
[2019-10-08] VITALS: BP 97/54
--- NOTE | 2019-10-08 00:05 | NUR ---
positioned to comfort resting without changes.
[2019-10-08] MEDS: HYDROcodone/acetaminophen 10/325mg tab PO PRN ×5 (02:01→21:01)
--- NOTE | 2019-10-08 02:05 | NUR ---
pt medicated for pain with po norco and repositioned in bed. tolerated well.
--- NOTE | 2019-10-08 04:05 | NUR ---
inc of urine.skin care done and repositioned in bed.
--- NOTE | 2019-10-08 05:17 | NUR ---
resting eyes closed without changes.
--- NOTE | 2019-10-08 06:30 | NUR ---
Patient in room [facility]. I have received report from Aleisha HANSEN and had the opportunity to ask questions and assume patient care.
--- NOTE | 2019-10-08 06:46 | NUR ---
Problems reprioritized. Patient report given, questions answered & plan of care reviewed with Judith Rizo. Addendum: 10/08/19 at 0646 by Aleisha Robles RN Amended: Links added.
[2019-10-08 07:00] VITALS: BP 100/81
[2019-10-08] MEDS: lactobacillus rhamnosus 10,000 MMU CELLS/CAPSULE PO SCH ×2 (08:11→19:55)
[2019-10-08] MEDS: emollient combination-Eucerin 250 ML LOTION TP SCH ×2 (08:12→19:56)
[2019-10-08] MEDS: heparin, porcine 5000 units/ml vial SQ SCH ×3 (08:12→19:58)
[2019-10-08 11:00] VITALS: BP 116/72
--- NOTE | 2019-10-08 18:42 | NUR ---
Problems reprioritized. Patient report given, questions answered & plan of care reviewed with Aleisha HANSEN.
--- NOTE | 2019-10-08 18:46 | NUR ---
Patient in room [facility]. I have received report from Judith Rizo and had the opportunity to ask questions and assume patient care. Addendum: 10/08/19 at 1846 by Aleisha Robles RN Amended: Links added.
[2019-10-08 20:00] VITALS: BP 95/58
--- NOTE | 2019-10-08 20:00 | NUR ---
PT HS MEDS GIVEN AND SKIN CARE DONE FOR HER. PT TALKING IN VERY RUDE TONE OF VOICE TO THE STAFF FLORA.TOLD HER PAIN MED TIMES ETC AND THAT I'D BE BACK AT 2100 TO GIVE HER NORCO TO HER.
--- NOTE | 2019-10-08 21:00 | NUR ---
PT MEDICATED WITH NORCO PO THEN INC OF URINE SKIN CARE DONE AND OUTBOARD MOTOR INSPECTOR TO DO A BED BATH AND LIEN CHANGE ON THE PT. PT REMAINS RUDE VERBALLY ROUGH TONE OF VOICE ON THE STAFF.
--- NOTE | 2019-10-08 22:30 | NUR ---
PT CALM LAYING IN BED WATCHING TV
[2019-10-09] VITALS: BP 113/51
--- NOTE | 2019-10-09 | NUR ---
a/o repositioned in bed no s&s of distress.
[2019-10-09] MEDS: HYDROcodone/acetaminophen 10/325mg tab PO PRN ×5 (01:05→19:40)
--- NOTE | 2019-10-09 01:07 | NUR ---
medicated for pain with po norco. pt states pain 08/30. watching tv.
--- NOTE | 2019-10-09 01:32 | NUR ---
pt resting eyes closed without changes.
--- NOTE | 2019-10-09 02:26 | NUR ---
pt resting eyesclosed without changes at this time.
--- NOTE | 2019-10-09 04:00 | NUR ---
repositioned in bed and skin care done.
--- NOTE | 2019-10-09 04:49 | NUR ---
medicated for c/o pain 10/ for leg and back.
--- NOTE | 2019-10-09 06:03 | NUR ---
Problems reprioritized. Patient report given, questions answered & plan of care reviewed with Judith Rizo. Addendum: 10/09/19 at 0604 by Aleisha Robles RN Amended: Links added.
--- NOTE | 2019-10-09 06:32 | NUR ---
Patient in room [facility]. I have received report from Aleisha HANSEN and had the opportunity to ask questions and assume patient care.
[2019-10-09 07:00] VITALS: BP 102/60
[2019-10-09] MEDS: heparin, porcine 5000 units/ml vial SQ SCH ×2 (08:00→19:41)
[2019-10-09] MEDS: lactobacillus rhamnosus 10,000 MMU CELLS/CAPSULE PO SCH ×2 (08:11→19:40)
[2019-10-09] MEDS: emollient combination-Eucerin 250 ML LOTION TP SCH ×2 (08:12→19:42)
[2019-10-09] MEDS: magnesium hydroxide 30ml (MOM) UD suspension PO PRN (10:10)
--- NOTE | 2019-10-09 15:13 | NUR ---
Per Health And Safety Technician Anna patient is discharging tomorrow at [facility] (see CM note) around 10:30am. Patient has been notified by Health And Safety Technician about this. Charge nurse Yenni aware about this.
--- NOTE | 2019-10-09 18:13 | NUR ---
Received report from TYRONE Wong. Patient is awake and alert on room air, in no apparent distress. Having meal, sitting up in bed. Call light and items of frequent use within reach. Will continue to monitor.
[2019-10-09] MEDS ORDERED: traMADol 50MG tablet PO PRN (18:15)
--- NOTE | 2019-10-09 18:23 | NUR ---
Problems reprioritized. Patient report given, questions answered & plan of care reviewed with Shwetha HANSEN.
[2019-10-09 20:00] VITALS: BP 112/58
[2019-10-10] MEDS: HYDROcodone/acetaminophen 10/325mg tab PO PRN ×3 (00:09→09:58)
--- NOTE | 2019-10-10 06:30 | NUR ---
Patient in room [facility]. I have received report from Shwetha HANSEN and had the opportunity to ask questions and assume patient care.
--- NOTE | 2019-10-10 06:34 | NUR ---
Problems reprioritized. Patient report given, questions answered & plan of care reviewed with TYRONE Carlton.
[2019-10-10] MEDS: lactobacillus rhamnosus 10,000 MMU CELLS/CAPSULE PO SCH (07:46)
[2019-10-10] MEDS: heparin, porcine 5000 units/ml vial SQ SCH (07:47)
[2019-10-10] MEDS: emollient combination-Eucerin 250 ML LOTION TP SCH (07:52)
[2019-10-10 07:53] VITALS: BP 104/62
--- NOTE | 2019-10-10 09:31 | NUR ---
Patients daughter Rashmi wanted a call from Shelby the rn case manager because she decided that she does not want her mother transported to facility in [place]. Phone number is [phone]. Patients daughter states she does not want her transferred because the facility is to far away. I paged Shelby the case manger who stated she went over transfer and facility multiple times with the patients daughter. Per Shelby she is in a meeting and won't be able to call daughter back before transport comes at 1030. If family wants to take patient home they can come and get her before 1030 and she can be discharge home with them, otherwise she will be transported. Primary RN Brandt aware and he will call daughter and advise.
--- NOTE | 2019-10-10 09:32 | NUR ---
Patients daughter called and stated she did not want her mother going to the facility that accepted her. At this time our staff took a message and asked for a callback number. The dynamics of the situation was told to case liner, who stated "let the family know they are free to tow picker the patient before 1030", after that patient will be transported to facility. Notified Rashmi the family of what case management stated. Family said they had to go at this time.
--- NOTE | 2019-10-10 11:09 | NUR ---
Patient just left the Facility, patient angry and stating "I can't believe this" Patient was reasurred that her daughter was notified and was able to come pick her up if she wished. Patient did not want to sign medicare form but was discharged with copy of form in her possession. Patient did not have a IV to remove. Patient left with all of her belongings and her wound care items as well. Patient was not happy with transfer to the next care facility.
== END 2019-10-10 11:08 | DRG 604 ==
LOC: ER 10:10 → ED HOLD 14:27 → SUR 3N 16:37
PROVIDERS: ADMIT Internal Medicine; ATTEND Family Medicine
DX: S81.801A Unspecified open wound, right lower leg, initial encounter (principal); E43 Unspecified severe protein-calorie malnutrition; L03.115 Cellulitis of right lower limb; Z68.1 Body mass index [BMI] 19.9 or less, adult; N39.0 Urinary tract infection, site not specified; Z16.21 Resistance to vancomycin; Z16.24 Resistance to multiple antibiotics; R62.7 Adult failure to thrive; L89.152 Pressure ulcer of sacral region, stage 2; R19.7 Diarrhea, unspecified; B95.62 Methicillin resistant Staphylococcus aureus infection as the cause of diseases classified elsewhere; B96.20 Unspecified Escherichia coli [E. coli] as the cause of diseases classified elsewhere; D63.8 Anemia in other chronic diseases classified elsewhere; B95.2 Enterococcus as the cause of diseases classified elsewhere; K21.9 Gastro-esophageal reflux disease without esophagitis; E11.51 Type 2 diabetes mellitus with diabetic peripheral angiopathy without gangrene; E87.6 Hypokalemia; F17.210 Nicotine dependence, cigarettes, uncomplicated; X58.XXXA Exposure to other specified factors, initial encounter; J44.9 Chronic obstructive pulmonary disease, unspecified; Z74.01 Bed confinement status; Z90.711 Acquired absence of uterus with remaining cervical stump; Z88.1 Allergy status to other antibiotic agents; Z88.5 Allergy status to narcotic agent; Z88.2 Allergy status to sulfonamides; Z88.8 Allergy status to other drugs, medicaments and biological substances; Z79.899 Other long term (current) drug therapy; Y93.89 Activity, other specified; Y92.89 Other specified places as the place of occurrence of the external cause; Y99.8 Other external cause status
CPT/HCPCS: 36415; 71045; 73590; 80048; 80053; 81001; 83605; 83735; 83880; 84100; 84145; 84443; 85025; 85027; 85610; 85651; 85730; 86140; 87040; 87070; 87077; 87081; 87088; 87186; 96374; 97110; 97112; 97163; 97530; 99285; G0378; J0692; J0696; J1644; J2270; J2543; J3370; J7060